=== PATIENT | female | born 1945 | race Caucasian/White ===

== ENCOUNTER 2020-02-04 22:01 | Inpatient (IN) | payer MEDICARE, OTHER ==
[~2020-02-04] VITALS: Ht 160 cm; Wt 71.7 kg
--- NOTE | 2020-02-04 22:05 | NUR ---
PT YUKI 89 FROM HOME FOR C/O GENERALIZED ABD PAIN +N/V AND CONSTIPATION X 3 DAYS. PT AAOX4, RESPIRATIONS EVEN AND UNLABORED ON RA W/ NAD NOTED. PT CONNECTED TO THE MONITOR AND POX.
[2020-02-04] MEDS ORDERED: MORPHINE SULFATE INJ 4 MG/ML DISP.SYRIN ONE (22:29)
[2020-02-04] MEDS ORDERED: ONDANSETRON HCL/PF 4 MG/2 ML VIAL ONE (22:29)
[2020-02-04] MEDS ORDERED: ONDANSETRON HCL/PF 4 MG/2 ML VIAL IVP ONE (22:30)
[2020-02-04] MEDS ORDERED: MORPHINE SULFATE INJ 2 MG/ML DISP.SYRIN IV ONE (22:30)
[2020-02-04 22:44] LABS: BASOPHILS % (AUTO) 0.3 % (0.0-2.0); HEMATOCRIT 30 % (33-45); HEMOGLOBIN 9.1 g/dL (11.5-14.8); LYMPHOCYTES # (AUTO) 1.4 /CMM (0.8-4.8); LYMPHOCYTES % (AUTO) 10.1 % (20.0-44.0); MEAN CORPUSCULAR HGB CONC 30 g/dl (31.0-36.0); MEAN CORPUSCULAR VOLUME 65 fL (82-100); MONOCYTES # (AUTO) 0.5 /CMM (0.1-1.30); MONOCYTES % (AUTO) 3.7 % (2.0-12.0); NEUTROPHILS # (AUTO) 11.6 /CMM (1.8-8.9); NEUTROPHILS % (AUTO) 85.9 % (43.0-81.0); PLATELET COUNT (AUTO) 408 /CMM (150-450); WHITE BLOOD COUNT (AUTO) 13.5 K/uL (4.3-11.0)
--- NOTE | 2020-02-04 22:47 | NUR ---
BLOOD COLLECTED AND SENT TO LAB
--- NOTE | 2020-02-04 22:47 | NUR ---
URINE COLLECTED AND SENT TO LAB
[2020-02-04 22:49] LABS: CALCIUM, SERUM 8.8 mg/dL (8.5-10.1); CARBON DIOXIDE 27 mmol/L (21-32); CHLORIDE 94 mmol/L (98-107); CREATININE 0.6 mg/dL (0.6-1.3); GLUCOSE 171 mg/dL (74-106); POTASSIUM 3.3 mmol/L (3.5-5.1); SODIUM SERUM 131 mmol/L (136-145); UREA NITROGEN, BLOOD 11 mg/dL (7-18)
--- NOTE | 2020-02-04 22:53 | NUR ---
PT TAKEN TO CT
[2020-02-04 22:54] LABS: ALANINE AMINOTRANSFERASE 24 U/L (12-78); ALBUMIN 3.8 g/dL (3.4-5.0); ALKALINE PHOSPHATASE 113 U/L (46-116); ASPARTATE AMINOTRANSFERASE 26 U/L (15-37); BILIRUBIN,DIRECT 0.1 mg/dL (0.0-0.2); BILIRUBIN,TOTAL 0.5 mg/dL (0.2-1.0); LIPASE 107 U/L (73-393); TOTAL PROTEIN, SERUM 8.1 g/dL (6.4-8.2)
[2020-02-04 22:59] LABS: APPEARANCE,URINE Slightly Cloudy (CLEAR); BILIRUBIN,URINE Negative (NEGATIVE); BLOOD, URINE Trace-intact Ery/uL (NEGATIVE); COLOR,URINE Yellow (YELLOW); KETONES,URINE 15 (NEGATIVE); LEUKOCYTE ESTERASE ,URINE Negative (NEGATIVE); NITRITE, URINE Negative (NEGATIVE); PROTEIN,URINE Trace mg/dl (NEGATIVE); UGLUCOSE 100 MG/DL mg/dL (NEGATIVE); UROBILINOGEN,URINE 0.2 EU/dL (0.2)
--- NOTE | 2020-02-04 23:05 | NUR ---
PT BACK FROM CT
[2020-02-04 23:19] LABS: BACTERIA,URINE Few /HPF (None Seen); SQUAMOUS EPITHELIAL CELL,UR Few /HPF (None Seen)
[2020-02-04 23:24] LABS: NEUTROPHILS % (MANUAL) 95 (42-76)
[2020-02-04 23:25] LABS: LYMPHOCYTES % (MANUAL) 4 % (16-48); MONOCYTES % (MANUAL) 1 % (0-11.0)
[2020-02-04] MEDS ORDERED: FERR325T30 PO (23:49)
[2020-02-04] MEDS ORDERED: ZOLP5TAB8 PO (23:50)
[2020-02-04] MEDS ORDERED: LISI-603 PO (23:51)
[2020-02-04] MEDS ORDERED: NEBI10TA2 PO (23:52)
[2020-02-04] MEDS ORDERED: AMLO5TAB9 PO (23:52)
[2020-02-04] MEDS ORDERED: DOCU-270 PO (23:53)
[2020-02-04] MEDS ORDERED: PROP20TA7 PO (23:54)
--- NOTE | 2020-02-05 00:10 | NUR ---
CALL BACK PER NURSE
--- NOTE | 2020-02-05 00:24 | NUR ---
NURSE WILL CALL BACK FOR ERPORT
--- NOTE | 2020-02-05 00:50 | NUR ---
REPORT GIVEN TO AUDREY NEIL
--- NOTE | 2020-02-05 00:54 | NUR ---
RE PAGED EPIC
[2020-02-05] MEDS ORDERED: hydrALAZINE HCL IV 20 MG VIAL ONE (00:59)
[2020-02-05] MEDS ORDERED: hydrALAZINE HCL IV 20 MG VIAL IV ONE ×2 (01:00→22:00)
[2020-02-05] MEDS: CIPROFLOXACIN IV RTU 400 MG in PREMIX 1 EA IV SCH ×2 (01:00→02:21)
[2020-02-05] MEDS ORDERED: FLAGYL/NS RTU 500 MG/100 ML PIGGYBACK IV ONE (01:00)
[2020-02-05] MEDS ORDERED: METRONIDAZOLE 500MG/ NS 100ML 100 ML IV ONE ×2 (01:05→05:02)
[2020-02-05] MEDS ORDERED: CIPROFLOXACIN IV RTU 200 ML IV ONE (01:05)
--- NOTE | 2020-02-05 01:32 | NUR ---
CIPROFLOXACIN 400 MG IV ENDORSED TO AUDREY NEIL
--- NOTE | 2020-02-05 02:22 | NUR ---
CIPROFLOXACIN 400 MG IV GIVEN IV LAC G 20 OVER 1 HOUR
[2020-02-05 02:40] VITALS: BP 170/96
[2020-02-05] MEDS ORDERED: MORPHINE SULFATE INJ 2 MG/ML DISP.SYRIN IV PRN (03:30)
[2020-02-05] MEDS ORDERED: ACETAMINOPHEN 325 MG TABLET PO PRN (03:30)
[2020-02-05] MEDS ORDERED: MAG HYDROX/AL HYDROX/SIMETH 30 ML UDC PO PRN (03:30)
[2020-02-05] MEDS ORDERED: Z GUARD REMEDY 2 OZ OINT TP PRN (03:30)
[2020-02-05] MEDS ORDERED: ZOLPIDEM TARTRATE 5 MG TABLET PO PRN (03:30)
[2020-02-05] MEDS ORDERED: MAGNESIUM HYDROXIDE 30 ML UDC PO PRN (03:30)
[2020-02-05 04:00] VITALS: BP 148/65
[2020-02-05] MEDS: METRONIDAZOLE 500MG/ NS 100ML 500 MG in PREMIX 1 EA IV SCH ×3 (05:06→21:18)
[2020-02-05] MEDS: IV NS 0.9% 1,000 ML IV PRN ×2 (05:09→23:51)
--- NOTE | 2020-02-05 06:55 | NUR ---
MS RN NOTES AWAKE & RESPONSIVE. NOT IN ANY DISTRESS. NO SOB NOTED. DENIES ANY PAIN OR DISCOMFORT AT THIS TIME. WITH IVF INFUSING WELL. MONITORED ACCORDINGLY. CALL LIGHT WITHIN REACH. BED IN LOWEST POSITION. SR UP X2 FOR SAFETY. WILL ENDORSE TO NEXT SHIFT.
[2020-02-05 08:00] VITALS: BP_SYST 148; BP_SYST 160; BP_DIAS 66; BP_DIAS 78
--- NOTE | 2020-02-05 08:00 | NUR ---
rn notes Received patient in the bed a/o x4 Citizen [place] speaker, no acute respiratory distress, was complaining of dizziness, and nausea, abdomen distended, unable passing gases. assist patient to the bathroom because of dizziness. NPO at this time. infusing NS at 75 ml/hr on left ac area intact. call light within to reach, continued monitoring.,
[2020-02-05] MEDS: ONDANSETRON HCL/PF 4 MG/2 ML VIAL IVP PRN ×2 (09:55→16:00)
--- NOTE | 2020-02-05 09:55 | NUR ---
RN NOTES ADMINISTERED ZOFRAN 4 MG/ML IV PUSH FOR NAUSEA.
--- NOTE | 2020-02-05 10:00 | NUR ---
rn notes seen [id number] by hospitalist TEMI Clinton, per hospitalist will follow up, plan is keep hydrating, keep npo, and nausea medication.
[2020-02-05 10:26] LABS: MAGNESIUM 2.2 mg/dL (1.8-2.4)
[2020-02-05 10:28] LABS: IRON, SERUM 18 ug/dl (50-175); TOTAL IRON BINDING CAPACITY 354 ug/dl (250-450)
[2020-02-05 10:39] LABS: THYROID STIMULATING HORMONE 0.944 uIU/mL (0.358-3.74)
[2020-02-05 16:00] VITALS: BP 175/96
[2020-02-05] MEDS: SIMETHICONE 80 MG TAB.CHEW PO PRN (16:00)
--- NOTE | 2020-02-05 16:00 | NUR ---
rn notes administered zofran 4 mg/ml iv push for nausea, and Mylicon 120 ml po prn for passing gas.
[2020-02-05] MEDS: DOCUSATE SODIUM 100 MG CAPSULE PO SCH (16:51)
--- NOTE | 2020-02-05 16:56 | NUR ---
rn notes Get gonsalo from GI Md Mosher get TO order NG tub insertion with low suction continues, NPO, fleet oil enema qid PRN, colonoscopy, sigmoidoscopy, and consent for tomorrow, order taken and carried out.
[2020-02-05] MEDS ORDERED: hydrALAZINE HCL 50 MG TABLET PO ONE (17:00)
[2020-02-05] MEDS ORDERED: MINERAL OIL 133 ML (PYXIS) 1 EA ENEMA RC PRN (17:00)
--- NOTE | 2020-02-05 17:00 | NUR ---
rn notes inserted NG tube on right nostril, chest x-ray ordered.
--- NOTE | 2020-02-05 17:45 | NUR ---
rn noted administered fleet oil enema at this time.
--- NOTE | 2020-02-05 18:30 | NUR ---
rn notes PATIENT IN THE BED KEEP HOB ELEVATED FOR ASPIRATION PRECAUTION, NGT INTACT CONNECTED WITH LOW INTERMITTENT SUCTIONING,V/S STABLE. PATIENT HAS NO BOWEL MOVEMENT AFTER FLEET ENEMA. CALL LIGHT WITHIN TO REACH. PATIENT NPO. ENDORSED ONCOMING NURSE FOLLOW PLAN OF CARE. PATIENT SIGN CONSENT FORM COLONOSCOPY, AND SIGMOIDOSCOPY.
--- NOTE | 2020-02-05 19:30 | NUR ---
MS RN NOTES PATIENT RECEIVED IN BED. ALERT AND ORIENTED X 4, ESTONIAN SPEAKING. HOB IN HIGH FOWLERS POSITION FOR ASPIRATION PRECAUTION. PATIENT NG TUBE IN PLACE WITH LOW INTERMITTENT SUCTION. SKIN WARM AND DRY TO TOUCH. IV ACCESS INTACT AND PATENT WITH NORMAL SALINE INFUSING AT 75ml/hr. DENIES PAIN AND DISCOMFORT AT THIS TIME. PROVIDED COMFORT MEASURES TO PATIENT. SAFETY PRECAUTIONS IN PLACE WITH BED LOCKED, BILATERAL SIDE RAILS UP, BED IN THE LOWEST POSITION, AND CALL LIGHT WITHIN EASY REACH OF THE PATIENT. WILL CONTINUE TO MONITOR PATIENT.
[2020-02-05 20:00] VITALS: BP 169/80
[2020-02-05] MEDS: CARVEDILOL 6.25 MG TABLET PO SCH (21:00)
--- NOTE | 2020-02-05 21:30 | NUR ---
MS RN NOTES PATIENT HAS SCHEDULE COREG 6.25mg PO, NOTIFIED KEESHA HERNANDEZ DNP AND INFORMED TO HOLD PO MEDICATIONS. KEESHA HERNANDEZ DNP ALSO ORDERED ATIVAN 0.5mg IV AND HYDRALAZINE 10mg IV. WILL CONTINUE TO MONITOR PATIENT.
--- NOTE | 2020-02-05 21:59 | NUR ---
MS RN NOTES PATIENT STILL ANXIOUS, ADMINISTERED IV ATIVAN 0.5mg KEESHA HERNANDEZ DNP ORDERED. VITAL SIGNS 179/85 HEART RATE 91. RESPIRATORY 20, AND SPO2 97%. WILL CONTINUE TO MONITOR PATIENT.
[2020-02-05] MEDS ORDERED: ZOLPIDEM TARTRATE 5 MG TABLET PO SCH (22:00)
[2020-02-05] MEDS ORDERED: LORAZEPAM INJ 2 MG/ML VIAL IV ONE (22:00)
--- NOTE | 2020-02-05 22:00 | NUR ---
MS RN NOTES ADMINISTERED IV HYDRALAZINE 10mg IV, PATIENT'S BLOOD PRESSURE 179/85 HEART RATE 91 SPO2 97% ON ROOM AIR. WILL REASSESS AND CONTINUE TO MONITOR PATIENT.
[2020-02-06] VITALS: BP 149/70
[2020-02-06 00:10] VITALS: BP 148/70
--- NOTE | 2020-02-06 01:15 | NUR ---
MS RN NOTES INSERT NEW NASOGASTRIC TUBE AND AUSCULTATED AIR INTO TUBE TO HEAR IF NASOGASTRIC TIP IS IN PLACE. ORDERED CHEST X-RAY FOR PLACEMENT, AWAITING FOR RESULTS. WILL CONTINUE TO MONITOR PATIENT.
[2020-02-06] MEDS: METRONIDAZOLE 500MG/ NS 100ML 500 MG in PREMIX 1 EA IV SCH ×3 (05:05→20:25)
[2020-02-06] MEDS: ONDANSETRON HCL/PF 4 MG/2 ML VIAL IVP PRN (05:29)
--- NOTE | 2020-02-06 05:29 | NUR ---
MS RN NOTES PATIENT COMPLAINING OF NAUSEA, ADMINISTERED PRN IV ZOFRAN 4mg, PROVIDED COMFORT MEASURES TO PATIENT. WILL CONTINUE TO MONITOR PATIENT.
--- NOTE | 2020-02-06 06:33 | NUR ---
MS RN NOTES PATIENT IN BED SLEEPING COMFORTABLY, EASILY AWAKEN BY NAME. NO SIGNS OF RESPIRATORY DISTRESS, WITH EVEN NON-LABORED BREATHING. NASOGASTRIC TUBE IN PLACE, SECURED WITH TAPE, AND SUCTIONING, with 200mL DRAINAGE PRESENT. IV ACCESS INTACT AND PATENT WITH NORMAL SALINE INFUSING AT 75ml/hr. PROVIDED COMFORT MEASURES TO PATIENT AND MET ALL OF PATIENT'S NEEDS. SAFETY PRECAUTIONS IN PLACE WITH BED LOCKED, BILATERAL SIDE RAILS UP, BED IN THE LOWEST POSITION, AND CALL LIGHT WITHIN EASY REACH OF THE PATIENT. WILL ENDORSE PLAN OF CARE TO UPCOMING DAYSHIFT NURSE.
[2020-02-06 06:47] LABS: BASOPHILS # (AUTO) 0.1 /CMM (0.0-0.2); BASOPHILS % (AUTO) 0.5 % (0.0-2.0); HEMATOCRIT 30 % (33-45); HEMOGLOBIN 9.1 g/dL (11.5-14.8); LYMPHOCYTES # (AUTO) 1.9 /CMM (0.8-4.8); LYMPHOCYTES % (AUTO) 15.4 % (20.0-44.0); MEAN CORPUSCULAR HGB CONC 30 g/dl (31.0-36.0); MEAN CORPUSCULAR VOLUME 66 fL (82-100); MONOCYTES # (AUTO) 0.9 /CMM (0.1-1.30); MONOCYTES % (AUTO) 7.5 % (2.0-12.0); NEUTROPHILS # (AUTO) 9.7 /CMM (1.8-8.9); NEUTROPHILS % (AUTO) 76.6 % (43.0-81.0); PLATELET COUNT (AUTO) 412 /CMM (150-450); RED BLOOD CELL COUNT(AUTO) 4.61 MIL/uL (4.0-5.2); WHITE BLOOD COUNT (AUTO) 12.6 K/uL (4.3-11.0)
[2020-02-06 07:12] LABS: ALANINE AMINOTRANSFERASE 20 U/L (12-78); ALBUMIN 3.3 g/dL (3.4-5.0); ALKALINE PHOSPHATASE 95 U/L (46-116); ASPARTATE AMINOTRANSFERASE 18 U/L (15-37); BILIRUBIN,TOTAL 0.5 mg/dL (0.2-1.0); CALCIUM, SERUM 8.5 mg/dL (8.5-10.1); CARBON DIOXIDE 23 mmol/L (21-32); CHLORIDE 99 mmol/L (98-107); CREATININE 0.7 mg/dL (0.6-1.3); GLUCOSE 135 mg/dL (74-106); MAGNESIUM 2.4 mg/dL (1.8-2.4); PHOSPHORUS 3.7 mg/dL (2.5-4.9); POTASSIUM 3.1 mmol/L (3.5-5.1); SODIUM SERUM 135 mmol/L (136-145); TOTAL PROTEIN, SERUM 7.3 g/dL (6.4-8.2); UREA NITROGEN, BLOOD 15 mg/dL (7-18)
[2020-02-06 07:15] LABS: CHOLESTEROL 220 mg/dL (<200); HDL CHOLESTEROL 53 mg/dL (40-60); LDL 159 mg/dL (0-99); THYROID STIMULATING HORMONE 1.533 uIU/mL (0.358-3.74); TRIGLYCERIDES 78 mg/dL (30-150)
--- NOTE | 2020-02-06 07:28 | NUR ---
MS RN NOTES RECEIVED PATIENT IN BED, AWAKE, A/O X4. PATIENT ON ROOM AIR; BREATHING IS EVEN AND UNLABORED, NO SOB PRESENT AT THIS TIME. NASOGASTRIC TUBE IN PLACE, SECURED WITH TAPE, AND SUCTIONING, 200 ML DRAINAGE PRESENT. LAC IV ACCESS G # 20 PRESENT AND INTACT; INFUSING NS AT 75 MLS/HR. SAFETY PRECAUTIONS IN PLACE; BED IN LOW POSITION AND LOCKED; RAILS UP X2, CALL LIGHT WITHIN REACH. WILL CONTINUE TO MONITOR PATIENT.
[2020-02-06 08:00] VITALS: BP 180/80
[2020-02-06] MEDS: LISINOPRIL (20MG) 20 MG TABLET PO SCH (09:26)
[2020-02-06] MEDS: AMLODIPINE BESYLATE 5 MG TABLET PO SCH (09:26)
[2020-02-06] MEDS: DOCUSATE SODIUM 100 MG CAPSULE PO SCH ×2 (09:26→16:54)
[2020-02-06] MEDS: CARVEDILOL 6.25 MG TABLET PO SCH ×2 (09:27→20:54)
--- NOTE | 2020-02-06 09:31 | NUR ---
MS RN NOTES NG TUBE SUCTION STOPPED FOR 30 MIN IN ORDER TO ADMINISTER MEDS.
[2020-02-06] MEDS: POTASSIUM CL. PREMIX PERIPHER. 50 ML IV SCH ×6 (09:48→22:35)
[2020-02-06 10:25] LABS: BAND % (MANUAL) 1 % (0.0-5.0); LYMPHOCYTES % (MANUAL) 17 % (16-48); MONOCYTES % (MANUAL) 6 % (0-11.0); NEUTROPHILS % (MANUAL) 76 (42-76)
--- NOTE | 2020-02-06 10:54 | NUR ---
MS RN NOTES PATIENT LEFT FOR PROCEDURE (TAKEN BY OR) AT 1050
--- NOTE | 2020-02-06 10:56 | NUR ---
MS RN NOTES TRIED TO REACH PATIENT'S SON BEFORE PROCEDURE (PER HIS REQUEST) NO ONE ANSWERED THE PHONE.
--- NOTE | 2020-02-06 12:37 | NUR ---
RN MS NOTES REPORT RECEIVED FROM FABIAN VENTURA FOR CONTINUITY OF CARE, PT STILL AT O.R. FOR COLONOSCOPY.
--- NOTE | 2020-02-06 12:37 | NUR ---
MS RN NOTES PATIENT CARE TRANSFERRED TO [facility]. REPORT GIVEN.
--- NOTE | 2020-02-06 12:47 | NUR ---
RN MS NOTES RECEIVED PT FROM O.R. STAFF FROM COLONOSCOPY, PT IS AWAKE, ALERT AND ORIENTED, DENIES PAIN, NOT IN DISTRESS, POST PROCEDURE ORDER RECEIVED, NOTED AND CARRIED OUT, NGT IN PLACE, PLACED ON LIS, KEPT PT COMFORTABLE, IV FLUIDS INFUSING WELL.
[2020-02-06 12:50] VITALS: BP 132/79
[2020-02-06] MEDS ORDERED: DEXTROSE 50%-WATER 50 ML DISP.SYRIN IV PRN (13:30)
[2020-02-06] MEDS ORDERED: SOD FERRIC GLUC 125 MG in IV NS 0.9% 100 ML IV SCH (14:00)
[2020-02-06] MEDS: Potassium Chloride 20 MEQ in IV D5/ 0.9% NACL 1,000 ML IV PRN (15:05)
[2020-02-06 16:00] VITALS: BP 140/87
[2020-02-06] MEDS: SOD FERRIC GLUC 125 MG in IV NS 0.9% 100 ML IV SCH (17:40)
[2020-02-06] MEDS: BLOOD SUGAR DIAGNOSTIC 1 EACH STRIP IN SCH (17:46)
--- NOTE | 2020-02-06 18:08 | NUR ---
RN MS NOTES PT IN BED, RESTING, AWAKE, ALERT AND ORIENTED, DENIES PAIN, NOT IN DISTRESS, CALL LIGHT WITHIN REACH, IV FLUIDS INFUSING WELL, KEPT NPO, NGT DRAINING WELL, PM CARE PROVIDED, KEPT WARM AND COMFORTABLE IN BED, ALL NEEDS ATTENDED.
--- NOTE | 2020-02-06 19:00 | NUR ---
RN NOTES: RECEIVED AWAKE IN BED IN HIGH FOWLERS POSITION, A/OX4, FARSI SPEAKING ONLY, ON RA SPO2-95%, IV CANNULA ON THE LAC G#20 WITH IVF OF D5%NS+20 mEq AT 80 ML/HR, FOR BLOOD SUGAR MONITORING, PER ENDORSEMENT FOR POTASSIUM REPLACEMENT, 3 BAGS PENDING TO BE GIVEN, ABLE TO AMBULATE WITH ASSIST, ORIENTED TO UNIT AND STAFF, KEPT CALL LIGHT WITHIN REACH, BED LOW AND LOCKED, SIDE RAILS UPX2, FALL,SAFETY AND ASPIRATION PRECAUTION OBSERVED, NPO EXCEPT MEDS, ICE CHIPS CAN BE GIVEN.KEPT ON CLOSE WATCH.
[2020-02-06 20:00] VITALS: BP 149/80
--- NOTE | 2020-02-06 21:02 | NUR ---
RN NOTES: AWAKE IN BETWEEN, COOPERATIVE CAN SPEAK LITTLE POLISH, COOPERATIVE, ORAL MEDS TAKEN AND TOLERATED, ASPIRATION PRECAUTION OBSERVED.
[2020-02-06] MEDS: ACETYLCYSTEINE 10% 3,000 MG/30 ML VIAL PO SCH (23:00)
--- NOTE | 2020-02-06 23:00 | NUR ---
RN NOTES: THIS MEDICATION IS NOT AVAILABLE IN THE OMNICELL, NOT ALSO AVAILABLE IN THE NURSING PROGRAM CHECKER, WILL ENDORSED TO F/U IN THE PHARMACY IN THE MORNING
--- NOTE | 2020-02-07 00:20 | NUR ---
RN NOTES: IV CANNULA OUT,EXPLAINED TO HER WE NEED TO REINSERT SHE AGREED. REINSERT IN RFA G#22 PATENT.RESUME IVF.
[2020-02-07] MEDS: BLOOD SUGAR DIAGNOSTIC 1 EACH STRIP IN SCH ×4 (00:37→17:02)
[2020-02-07] MEDS: INSULIN REGULAR, HUMAN 100 UNIT/ML 3 ML VIAL SQ PRN ×2 (00:47→05:39)
--- NOTE | 2020-02-07 00:49 | NUR ---
RN NOTES: BLOOD SUGAR CHECKED-145, INSULIN GIVEN PER SCALE, WILL CONTINUE TO MONITPOR FOR SIGN OF HYPER AND HYPOGLYCEMIA.
--- NOTE | 2020-02-07 03:31 | NUR ---
RN NOTES: PATIENT AWAKE AT SHORT INTERVALS, CALLS AND NEEDS ATTENDED, NO PAIN, NGT DRAINAGE 1,500, REPLACED WITH NEW CONTAINER.
[2020-02-07] MEDS: METRONIDAZOLE 500MG/ NS 100ML 500 MG in PREMIX 1 EA IV SCH ×3 (04:35→21:46)
--- NOTE | 2020-02-07 06:09 | NUR ---
RN NOTES: ABLE TO GET UP FROM BED, ACTIVITY TOLERATED, NO DIZZINESS NOTED, WENT TO THE BATHROOM, CLEAN AND CHANGE, MORNING CARE RENDERED. GIVEN ICE CHIPS. SHE REFUSED FOR BLOOD TEST, INSTRUCT CONTACT CENTER SPECIALIST TO COME BACK AGAIN LATER. -BLOOD SUGAR-133- INSULIN GIVEN PER SCALE.
--- NOTE | 2020-02-07 07:20 | NUR ---
RN NOTES: REMAINS STABLE, KEPT ON CLOSE WATCH, HER DRAINAGE CONTINUE TO FLOW,ENDORSED FOR CONTINUITY OF CARE AT THE LEVEL OF 500CC,BROWNISH/DARK COLORED DRAINAGE, FOR POSSIBLE CT CHEST ABDOMEN WITH CONTRAST TODAY, KEPT NPO, TAKING ICE CHIPS WITH GOOD TOLERANCE.FOR ONCO/SURGEON F/U.
[2020-02-07 08:00] VITALS: BP 164/92
[2020-02-07] MEDS: LISINOPRIL (20MG) 20 MG TABLET PO SCH (08:51)
[2020-02-07] MEDS: AMLODIPINE BESYLATE 5 MG TABLET PO SCH (08:52)
[2020-02-07] MEDS: CARVEDILOL 6.25 MG TABLET PO SCH ×2 (08:52→21:47)
[2020-02-07] MEDS: DOCUSATE SODIUM 100 MG CAPSULE PO SCH ×2 (08:52→17:01)
[2020-02-07] MEDS: ACETYLCYSTEINE 10% 3,000 MG/30 ML VIAL PO SCH ×2 (09:00→17:01)
[2020-02-07] MEDS ORDERED: CT SWABBABLE VALVE TRANS SET 1 EA INFUS.SET MC ONE (10:54)
[2020-02-07] MEDS ORDERED: IOHEXOL-300 100 ML VIAL IV ONE (10:54)
[2020-02-07] MEDS ORDERED: IV NS 0.9% 250 ML IV ONE (10:54)
--- NOTE | 2020-02-07 12:10 | NUR ---
Patient requested med record and sighed form
[2020-02-07] MEDS: SOD FERRIC GLUC 125 MG in IV NS 0.9% 100 ML IV SCH (15:13)
[2020-02-07 16:00] VITALS: BP 158/76
[2020-02-07 16:58] LABS: BASOPHILS # (AUTO) 0.1 /CMM (0.0-0.2); BASOPHILS % (AUTO) 0.6 % (0.0-2.0); EOSINOPHILS % (AUTO) 0.9 % (0.0-6.0); HEMATOCRIT 31 % (33-45); HEMOGLOBIN 9.3 g/dL (11.5-14.8); LYMPHOCYTES # (AUTO) 2.9 /CMM (0.8-4.8); LYMPHOCYTES % (AUTO) 20.3 % (20.0-44.0); MEAN CORPUSCULAR HGB CONC 30 g/dl (31.0-36.0); MEAN CORPUSCULAR VOLUME 66 fL (82-100); MONOCYTES # (AUTO) 1.5 /CMM (0.1-1.30); MONOCYTES % (AUTO) 10.7 % (2.0-12.0); NEUTROPHILS # (AUTO) 9.5 /CMM (1.8-8.9); NEUTROPHILS % (AUTO) 67.5 % (43.0-81.0); PLATELET COUNT (AUTO) 444 /CMM (150-450); RED BLOOD CELL COUNT(AUTO) 4.72 MIL/uL (4.0-5.2)
[2020-02-07] MEDS: Potassium Chloride 20 MEQ in IV D5/ 0.9% NACL 1,000 ML IV PRN (17:04)
[2020-02-07 17:11] LABS: CALCIUM, SERUM 8.3 mg/dL (8.5-10.1); CREATININE 0.8 mg/dL (0.6-1.3); MAGNESIUM 2.7 mg/dL (1.8-2.4); PHOSPHORUS 3.3 mg/dL (2.5-4.9)
[2020-02-07 17:17] LABS: POTASSIUM 3.1 mmol/L (3.5-5.1)
[2020-02-07 17:24] LABS: LYMPHOCYTES % (MANUAL) 24 % (16-48); MONOCYTES % (MANUAL) 9 % (0-11.0); NEUTROPHILS % (MANUAL) 67 (42-76)
--- NOTE | 2020-02-07 18:56 | NUR ---
Patient awake alert and oriented x3, NG tube interm. suctioning in place with brown output.Patien remains NPO, can have ice ships. All needs attended. Patient able to use bathroom with assistants.IV fluid running as ordered. VS are stable and within baseline, on room air. PAtient denied pain and abdomen soft and not distended. Patient's family will make a discission about surgery. Dr Murrell will call tomorrow morning to pt's son again. Safety precautions in place , will endorse to next shift for KIMBERLY
--- NOTE | 2020-02-07 19:53 | NUR ---
RN NOTES RECEIVED AWAKE IN BED IN HIGH FOWLERS POSITION, A/OX4, FARSI SPEAKING ONLY, ON RA SPO2>94, IV ACCESS ON THE LAC G#20 WITH IVF INTACT AND PATENT. ABLE TO AMBULATE WITH ASSIST, ORIENTED TO UNIT AND STAFF, CALL LIGHT WITHIN EASY REACH, BED LOW AND LOCKED, SIDE RAILS UPX2, FALL,SAFETY AND ASPIRATION PRECAUTION OBSERVED, NPO EXCEPT MEDS, ICE CHIPS CAN BE GIVEN. KEPT ON CLOSE WATCH. ALL NEEDS ANTICIPATED. WILL CONTINUE TO MONITOR ACCORDINGLY.
[2020-02-07 20:00] VITALS: BP 138/78
[2020-02-07 20:45] VITALS: BP 138/78
[2020-02-08] VITALS: BP 154/90
[2020-02-08] MEDS: BLOOD SUGAR DIAGNOSTIC 1 EACH STRIP IN SCH ×4 (00:08→16:46)
[2020-02-08 00:13] VITALS: BP 154/90
[2020-02-08 04:56] VITALS: BP 138/78
[2020-02-08] MEDS: METRONIDAZOLE 500MG/ NS 100ML 500 MG in PREMIX 1 EA IV SCH ×3 (05:06→20:28)
[2020-02-08 07:13] LABS: BASOPHILS # (AUTO) 0.1 /CMM (0.0-0.2); BASOPHILS % (AUTO) 0.6 % (0.0-2.0); HEMATOCRIT 29 % (33-45); LYMPHOCYTES # (AUTO) 2.2 /CMM (0.8-4.8); LYMPHOCYTES % (AUTO) 19.5 % (20.0-44.0); MEAN CORPUSCULAR HGB CONC 31 g/dl (31.0-36.0); MEAN CORPUSCULAR VOLUME 66 fL (82-100); MONOCYTES # (AUTO) 1.2 /CMM (0.1-1.30); NEUTROPHILS # (AUTO) 7.7 /CMM (1.8-8.9); NEUTROPHILS % (AUTO) 67.9 % (43.0-81.0); PLATELET COUNT (AUTO) 447 /CMM (150-450); RED BLOOD CELL COUNT(AUTO) 4.42 MIL/uL (4.0-5.2); WHITE BLOOD COUNT (AUTO) 11.4 K/uL (4.3-11.0)
--- NOTE | 2020-02-08 07:30 | NUR ---
RN NOTES ALL NEEDS ATTENDED AND MET, SAFETY MEASURES IN PLACE, ASPIRATION PRECAUTION EMPHASIZED, CALL LIGHT WITHIN EASY REACH. ENDORSED TO AM NURSE FOR CONTINUITY OF CARE.
[2020-02-08 07:36] LABS: CALCIUM, SERUM 8.5 mg/dL (8.5-10.1); CREATININE 0.7 mg/dL (0.6-1.3); MAGNESIUM 2.6 mg/dL (1.8-2.4); PHOSPHORUS 3.5 mg/dL (2.5-4.9); POTASSIUM 2.9 mmol/L (3.5-5.1)
--- NOTE | 2020-02-08 07:55 | NUR ---
Call from dr. Goode ; no surgery until biopsy results back
[2020-02-08 08:00] VITALS: BP 134/98
--- NOTE | 2020-02-08 08:12 | NUR ---
IV line infiltrated, removed . A new IV line inserted to the right forearm G #20 , IV fluid to continue as ordered
--- NOTE | 2020-02-08 08:14 | NUR ---
critical carbon dioxide is 40 , K is 2.[address] Clinton informed
[2020-02-08] MEDS: DOCUSATE SODIUM 100 MG CAPSULE PO SCH ×2 (08:37→16:46)
[2020-02-08] MEDS: LISINOPRIL (20MG) 20 MG TABLET PO SCH (08:38)
[2020-02-08] MEDS: AMLODIPINE BESYLATE 5 MG TABLET PO SCH (08:38)
[2020-02-08] MEDS: CARVEDILOL 6.25 MG TABLET PO SCH ×2 (08:39→20:29)
[2020-02-08] MEDS: POTASSIUM CL. PREMIX PERIPHER. 50 ML IV SCH ×8 (08:55→17:55)
--- NOTE | 2020-02-08 10:09 | NUR ---
Per start patient on clear liquid
--- NOTE | 2020-02-08 12:10 | NUR ---
Patient tolerated clear liquid diet well with no N/V or abdominal pain
[2020-02-08] MEDS: SOD FERRIC GLUC 125 MG in IV NS 0.9% 100 ML IV SCH (13:56)
[2020-02-08 16:00] VITALS: BP 176/76
[2020-02-08] MEDS: Potassium Chloride 20 MEQ in IV D5/ 0.9% NACL 1,000 ML IV PRN ×2 (17:39→17:41)
--- NOTE | 2020-02-08 18:33 | NUR ---
Patient resting in bed, alert and oriented x3 , Guinean speaking. Breathing unlabored and even on room air with saturation above 95%. VS within baseline, afebrile. NG - tube connected to suction (Intermittent low). Total output 2600 ml. IV lines intact and patent. IV fluid running as ordered, 400 ml K as ordered infused . Patient tolerated clear diet. Patient able to walk with assistance.All needs attended. Will endorse jimbo next shift for KIMBERLY
--- NOTE | 2020-02-08 19:30 | NUR ---
MS RN OPENING NOTE RECEIVED PATIENT IN BED. A/OX4, EQUATORIAL GUINEAN SPEAKING ABLE TO MAKE BASIC NEEDS KNOWN. TOLERATING ROOM AIR. RESPIRATIONS ARE EVEN AND UNLABORED. RIGHT NARE HAS NG TUBE CONNECTED TO LOW INTERMITTENT SUCTION, OUTPUT IS THIN AND BLACK. NO S/S PAIN AT THIS TIME. IN NO APPARENT DISTRESS. IV ACCESS IN RFA#20 PATENT AND SALINE LOCKED AND L WRIST #22 RUNNING KCL 20MEQ WITH D5NS@80ML/HR. BED IS LOW AND LOCKED, HOB ELEVATED IN HIGH FOWLERS, SIDE RIALS UP X2, CALL LIGHT WITHIN REACH. WILL CONTINUE TO MONITOR.
[2020-02-08 20:00] VITALS: BP 163/90
--- NOTE | 2020-02-08 21:25 | NUR ---
ms rn note reassessed o2 saturation with a different vital signs machine o2 sat 92% on room air. patient refused 2l/min via nasal cannula. will continue to monitor.
[2020-02-09] MEDS: BLOOD SUGAR DIAGNOSTIC 1 EACH STRIP IN SCH ×4 (00:40→17:23)
--- NOTE | 2020-02-09 00:42 | NUR ---
ms rn note 0000 accu check bs 184. will not provide insulin coverage d/t patient is on ng tube to low intermittent suction. all patient ice chips currently taking are being suctioned. explained situation to charge nurse, agrees not to give insulin. will continue to monitor.
[2020-02-09] MEDS: METRONIDAZOLE 500MG/ NS 100ML 500 MG in PREMIX 1 EA IV SCH ×3 (05:06→21:27)
--- NOTE | 2020-02-09 05:21 | NUR ---
ms rn note administered prn Tylenol 650mg per patient request for abdominal pain. will continue to monitor.
--- NOTE | 2020-02-09 05:49 | NUR ---
ms rn note 0600 accu check blood sugar 185. did not administer insulin d/t patient has ng tube to low intermittent suction. all fluids are being removed. will endorse to next shift and will continue to monitor.
--- NOTE | 2020-02-09 07:06 | NUR ---
MS RN CLOSING NOTE PATIENT IN BED. A/OX4. TOLERATING ROOM AIR. RESPIRATIONS ARE EVEN AND UNLABORED. RIGHT NARE HAS NG TUBE CONNECTED TO LOW INTERMITTENT SUCTION, OUTPUT IS THIN AND BLACK, OUTPUT 3000. ADMINISTERED TYLENOL FOR PAIN PER PATIENT REQUEST. NO DISTRESS. IV ACCESS MAINTAINED IN RFA#20 PATENT AND SALINE LOCKED AND L WRIST #22 RUNNING KCL 20MEQ WITH D5NS@80ML/HR. BED IS LOW AND LOCKED, HOB ELEVATED IN HIGH FOWLERS, SIDE RIALS UP X2, CALL LIGHT WITHIN REACH. WILL ENDORSE TO NEXT SHIFT.
--- NOTE | 2020-02-09 07:37 | NUR ---
MS/RN OPENING NOTES RECEIVED PATIENT IN BED. A/OX4. TOLERATING ROOM AIR. RESPIRATIONS ARE EVEN AND UNLABORED. RIGHT NARE HAS NG TUBE CONNECTED TO LOW INTERMITTENT SUCTION, OUTPUT IS THIN AND BLACK. NO DISTRESS RESPIRATORY DISTRESS NOTED. IV ACCESS MAINTAINED IN RFA#20 PATENT AND SALINE LOCKED AND L WRIST #22 RUNNING KCL 20MEQ WITH D5NS@80ML/HR. BED IS LOW AND LOCKED, HOB ELEVATED IN HIGH FOWLERS, SIDE RIALS UP X2, CALL LIGHT WITHIN REACH. WILL CONTINUE TO MONITOR.
[2020-02-09 08:00] VITALS: BP 165/81
[2020-02-09] MEDS: LISINOPRIL (20MG) 20 MG TABLET PO SCH (08:48)
[2020-02-09] MEDS: DOCUSATE SODIUM 100 MG CAPSULE PO SCH ×2 (08:48→17:17)
[2020-02-09] MEDS: AMLODIPINE BESYLATE 5 MG TABLET PO SCH (08:49)
[2020-02-09] MEDS: CARVEDILOL 6.25 MG TABLET PO SCH ×2 (08:49→21:28)
[2020-02-09] MEDS: INSULIN REGULAR, HUMAN 100 UNIT/ML 3 ML VIAL SQ PRN ×2 (11:22→17:26)
--- NOTE | 2020-02-09 11:28 | NUR ---
MS/RN NOTES BS 205 MG/DL 4 UNITS INSULIN WAS GIVEN.
[2020-02-09 12:06] LABS: *HGBFRC HEMOGLOBIN A2 1.5 % (1.8-3.2)
[2020-02-09] MEDS: SOD FERRIC GLUC 125 MG in IV NS 0.9% 100 ML IV SCH (14:36)
[2020-02-09 16:00] VITALS: BP 145/85
[2020-02-09 16:32] LABS: BASOPHILS # (AUTO) 0.2 /CMM (0.0-0.2); EOSINOPHILS % (AUTO) 0.3 % (0.0-6.0); HEMATOCRIT 33 % (33-45); HEMOGLOBIN 10.1 g/dL (11.5-14.8); LYMPHOCYTES # (AUTO) 2.7 /CMM (0.8-4.8); LYMPHOCYTES % (AUTO) 14.8 % (20.0-44.0); MEAN CORPUSCULAR HGB CONC 31 g/dl (31.0-36.0); MEAN CORPUSCULAR VOLUME 67 fL (82-100); MONOCYTES # (AUTO) 1.5 /CMM (0.1-1.30); MONOCYTES % (AUTO) 8.2 % (2.0-12.0); NEUTROPHILS # (AUTO) 13.6 /CMM (1.8-8.9); NEUTROPHILS % (AUTO) 75.7 % (43.0-81.0); PLATELET COUNT (AUTO) 482 /CMM (150-450); RED BLOOD CELL COUNT(AUTO) 4.88 MIL/uL (4.0-5.2)
[2020-02-09 16:45] LABS: CALCIUM, SERUM 8.9 mg/dL (8.5-10.1); CREATININE 0.9 mg/dL (0.6-1.3); MAGNESIUM 2.7 mg/dL (1.8-2.4); PHOSPHORUS 5.1 mg/dL (2.5-4.9)
[2020-02-09 17:55] LABS: LYMPHOCYTES % (MANUAL) 16 % (16-48); MONOCYTES % (MANUAL) 6 % (0-11.0); NEUTROPHILS % (MANUAL) 78 (42-76)
[2020-02-09 18:06] LABS: POTASSIUM 2.4 mmol/L (3.5-5.1)
--- NOTE | 2020-02-09 19:26 | NUR ---
MS/RN CLOSING NOTES PATIENT IS ON BED. A/OX4. TOLERATING ROOM AIR. RESPIRATIONS ARE EVEN AND UNLABORED. RIGHT NARE HAS NG TUBE CONNECTED TO LOW INTERMITTENT SUCTION, OUTPUT IS THIN AND BLACK. NO S/S OF RESPIRATORY DISTRESS NOTED. NO COMPLAINED OF PAIN AT THIS TIME. IV ACCESS MAINTAINED IN RFA#20 PATENT AND SALINE LOCKED AND L WRIST #22 RUNNING KCL 20MEQ WITH D5NS@80ML/HR. SEEN AND EXAMINED BY MD WITH ORDERS MADE AND CARRIED OUT. ALL DUE MEDICATION WAS GIVEN. CRITICAL LAB VALUE OF POTASSIUM 2.4 CO2 44 DOCTOR STEPHENSON ORDER POTASSIUM 40 MEQ IV AND ABG NOTED AND CARRIED OUT. PATIENT IS FOR SURGERY TOMORROW TELEPHONE CONSENT BY DALE ARBOLEDA (SON) AND ATTACH TO CHART. ALEM VENTURA DISTRIBUTION ANALYST IS AWARE. BED IS LOW AND LOCKED, HOB ELEVATED IN HIGH FOWLERS, SIDE RAILS UP X2, CALL LIGHT WITHIN REACH. WILL ENDORSED TO DISTRIBUTION ANALYST FOR KIMBERLY.
--- NOTE | 2020-02-09 19:30 | NUR ---
MS RN CLOSING NOTE PATIENT IN BED. A/OX4. TOLERATING ROOM AIR. RESPIRATIONS ARE EVEN AND UNLABORED. RIGHT NARE WITH NG TUBE CONNECTED TO LOW INTERMITTENT SUCTION, OUTPUT IS THIN AND BLACK. NO S/S PAIN AT THIS TIME. IN NO APPARENT DISTRESS. IV ACCESS IN RFA#20 PATENT AND SALINE LOCKED AND L WRIST #22 RUNNING KCL 20MEQ WITH D5NS@80ML/HR. BED IS LOW AND LOCKED, HOB ELEVATED IN HIGH FOWLERS, SIDE RIALS UP X2, CALL LIGHT WITHIN REACH. WILL CONTINUE TO MONITOR.
[2020-02-09] MEDS: Potassium Chloride 20 MEQ in IV D5/ 0.9% NACL 1,000 ML IV PRN (19:53)
[2020-02-09 20:00] VITALS: BP 159/76
[2020-02-09 20:45] LABS: ABG BASE EXCESS 22.2 mmol/L; ABG PCO2 42.7 mmHg (35.0-45.0); ABG PH 7.644 (7.350-7.450); ABG PO2 53.3 mmHg (75.0-100.0); AaDO2 45.3 mmHg; COHb 0.6 % (0.5-1.5); O2Hb 89.5 % (94.0-97.0); SITE, ABG Right Radial; VENT MODE, BG ROOM AIR
--- NOTE | 2020-02-09 21:10 | NUR ---
MS RN NOTE 2107. RT CALLED TO NOTIFY OF CRITICAL IN ABG. PH [phone], PO2 53.3. RECOMMENDATION TO PLACE PATIENT ON 2L/MIN VIA NASAL CANNULA. 2109 CALLED MD TO NOTIFY HIM OF THE CRITICAL LAB ABGS. PH [phone], PO2 53.3, PCO2 42.7, HCO3 45.[address] PATIENT ON SUPPLEMENTAL O2 AND TITRATE NEEDED. ORDER READ BACK NOTED AND CARRIED OUT. PATIENT CURRENT O2 SAT 90% PLACED PATIENT ON 2L/MIN VIA NASAL CANNULA O2 SAT NOW 92%. INCREASE TO 3L/MIN O2 SAT NOW FLUCTUATING BETWEEN 92% AND 93%. PLACED PATIENT ON 4L.MIN O2 SAY 93% WILL CONTINUE TO MONITOR PATIENT.
[2020-02-09] MEDS: POTASSIUM CHLORIDE 10 MEQ/50 ML PREMIXED IVPB FOR PERIPHERAL LINE IV SCH ×4 (21:27→23:00)
[2020-02-10] VITALS (44 sets, daily range): BP systolic 45–169; BP diastolic 20–93
--- NOTE | 2020-02-10 | NUR ---
ms rn note patient is npo. placed sign on patients door and table. cleared bedside table from all food and drink. informed patient of npo status. will continue to monitor.
--- NOTE | 2020-02-10 00:10 | NUR ---
ms rn note 0000 accucheck read bs 164. no insulin coverage d/t patient is npo for surgery,. will continue to monitor.
[2020-02-10] MEDS: POTASSIUM CHLORIDE 10 MEQ/50 ML PREMIXED IVPB FOR PERIPHERAL LINE IV SCH ×8 (01:00→07:00)
--- NOTE | 2020-02-10 01:49 | NUR ---
ms rn - note for pharmacy only administered 40meq potassium in 50ml bags (4 bags total). there were more potassium chloride bags shown on emar. did not administer more than 4 bags.
[2020-02-10] MEDS: METRONIDAZOLE 500MG/ NS 100ML 500 MG in PREMIX 1 EA IV SCH ×3 (05:01→22:01)
[2020-02-10] MEDS: BLOOD SUGAR DIAGNOSTIC 1 EACH STRIP IN SCH ×4 (05:02→18:10)
--- NOTE | 2020-02-10 05:11 | NUR ---
ms rn note 0600 accuc heck bs reads 155. did not provide insulin coverage d/t timur dinero. will continue to monitor.
[2020-02-10] MEDS ORDERED: ANESTHESIA TRAY IN PYXIS 1 EA TRAY MC ONE (06:58)
--- NOTE | 2020-02-10 07:06 | NUR ---
ms rn note patient is being taken to surgery.
--- NOTE | 2020-02-10 07:15 | NUR ---
rn notes patient taken to the surgery at this time.
[2020-02-10 07:33] LABS: BASOPHILS # (AUTO) 0.1 /CMM (0.0-0.2); BASOPHILS % (AUTO) 0.3 % (0.0-2.0); HEMATOCRIT 35 % (33-45); HEMOGLOBIN 10.5 g/dL (11.5-14.8); LYMPHOCYTES # (AUTO) 1.3 /CMM (0.8-4.8); LYMPHOCYTES % (AUTO) 5.4 % (20.0-44.0); MEAN CORPUSCULAR HGB CONC 30 g/dl (31.0-36.0); MEAN CORPUSCULAR VOLUME 68 fL (82-100); MONOCYTES # (AUTO) 1.5 /CMM (0.1-1.30); MONOCYTES % (AUTO) 6.3 % (2.0-12.0); NEUTROPHILS # (AUTO) 21.3 /CMM (1.8-8.9); PLATELET COUNT (AUTO) 491 /CMM (150-450); RED BLOOD CELL COUNT(AUTO) 5.15 MIL/uL (4.0-5.2); WHITE BLOOD COUNT (AUTO) 24.2 K/uL (4.3-11.0)
[2020-02-10 07:44] LABS: ALANINE AMINOTRANSFERASE 27 U/L (12-78); ALBUMIN 3.5 g/dL (3.4-5.0); ALKALINE PHOSPHATASE 85 U/L (46-116); ASPARTATE AMINOTRANSFERASE 44 U/L (15-37); BILIRUBIN,TOTAL 0.7 mg/dL (0.2-1.0); CALCIUM, SERUM 8.8 mg/dL (8.5-10.1); CHLORIDE 96 mmol/L (98-107); GLUCOSE 161 mg/dL (74-106); MAGNESIUM 2.9 mg/dL (1.8-2.4); PHOSPHORUS 6.2 mg/dL (2.5-4.9); SODIUM SERUM 153 mmol/L (136-145); TOTAL PROTEIN, SERUM 7.3 g/dL (6.4-8.2); UREA NITROGEN, BLOOD 33 mg/dL (7-18)
[2020-02-10 07:46] LABS: POTASSIUM 2.5 mmol/L (3.5-5.1)
--- NOTE | 2020-02-10 08:00 | NUR ---
rn notes patient back from surgery, because of critical lab result kcl 2.4, per surgeon will replace 80mEq, rescheduled surgery afternoon after kcl + replacement.
[2020-02-10 08:02] LABS: CARBON DIOXIDE 61 mmol/L (21-32)
--- NOTE | 2020-02-10 08:23 | NUR ---
rn notes get pic line order, and KCL 80 mEq at this time via hospitalist Pablo MEMBRENO, connected NG tube to the intermittent suctioning, held po scheduled medication, keep hob elevated for aspiration precaution, v/s taken bp 123/71, p-101, ,t-97.8, on o2-3L NC, patient independent in bed moving, refused pain at this time, infusing,D51/2 NS at 80 ml/hr on right FA intact. patient on diaper. call light within to reach, continued monitoring.
[2020-02-10] MEDS: POTASSIUM CL. PREMIX PERIPHER. 50 ML IV SCH ×10 (08:47→23:05)
[2020-02-10] MEDS: AMLODIPINE BESYLATE 5 MG TABLET PO SCH (09:00)
[2020-02-10] MEDS: DOCUSATE SODIUM 100 MG CAPSULE PO SCH ×2 (09:00→17:00)
[2020-02-10] MEDS ORDERED: KCL IV SCH ×2 (09:00)
[2020-02-10] MEDS ORDERED: [UNRECOGNIZED DRUG - OTHER] IV SCH ×2 (09:00)
[2020-02-10] MEDS: NITROGLYCERIN 30 GM TUBE TP SCH ×2 (09:00→21:00)
[2020-02-10] MEDS ORDERED: D5 IV SCH ×2 (09:00)
[2020-02-10] MEDS: CARVEDILOL 6.25 MG TABLET PO SCH ×2 (09:00→21:00)
[2020-02-10 09:01] LABS: ABG BASE EXCESS 35.5 mmol/L; ABG OXYGEN SATURATION 96.9 % (92.0-98.5); ABG PCO2 50.7 mmHg (35.0-45.0); ABG PH 7.691 (7.350-7.450); ABG PO2 83.4 mmHg (75.0-100.0); AaDO2 85.4 mmHg; COHb 0.8 % (0.5-1.5); MetHb 0.3 % (0.0-1.5); O2Hb 95.8 % (94.0-97.0); SITE, ABG Left Radial
--- NOTE | 2020-02-10 09:09 | NUR ---
RT NOTE CRITICAL ABG RESULTS RELAYED TO MD REYES. Addendum: 02/10/20 at 0923 by MARCI KHAN RT RESULTS ALSO RELAYED TO AUDREY CHRISTENSEN.
[2020-02-10] MEDS ORDERED: Potassium Chloride 40 MEQ in IV D5/0.45 NACL 1,000 ML IV PRN (09:30)
[2020-02-10] MEDS ORDERED: acetaZOLAMIDE SODIUM 500 MG/VIAL VIAL IV ONE (10:00)
--- NOTE | 2020-02-10 10:12 | NUR ---
rn notes patient transferred ICU because of ABG result. report given Patricia RN follow plan of care.
--- NOTE | 2020-02-10 10:30 | NUR ---
ICU/RN: RECEIVED BEDSIDE REPORT FROM 3W RN ZOE. PT TRANSFERRED TO 260FROM 310. ON ON NASAL CANULA, NO ACUTE DISTRESS NOTED. SINUS TACH ON TELE. PT SCHEDULED FOR SURGERY, RECEIVING POTASSIUM, WILL RECHECK LEVEL AT 1300 TO DETERMINE IF PT CAN HAVE SURGERY TODAY. NG TUBE IN PLACE, TO LIS, BLACK OUTPUT NOTED. VSS. PT ALERT, AWAKE, FOLLOWS COMMANDS. ALL NEEDS WILL BE ATTENDED TO, SAFETY MEASURES TAKEN, BED IN LOW POSITION, SIDE RAILS UP, CALL LIGHT WITHIN REACH. WILL CONTINUE CARE. YASMINE AT BEDSIDE FOR PICC LINE PLACEMENT.
[2020-02-10] MEDS ORDERED: Potassium Chloride 60 MEQ in IV D5W 1,000 ML IV PRN (11:23)
[2020-02-10] MEDS: INSULIN REGULAR, HUMAN 100 UNIT/ML 3 ML VIAL SQ PRN ×2 (12:00→18:24)
[2020-02-10 12:13] LABS: LYMPHOCYTES % (MANUAL) 2 % (16-48); MONOCYTES % (MANUAL) 5 % (0-11.0); NEUTROPHILS % (MANUAL) 93 (42-76)
[2020-02-10] MEDS ORDERED: Potassium Chloride 40 MEQ in IV D5W 1,000 ML IV PRN (12:30)
[2020-02-10 13:33] LABS: BILIRUBIN,DIRECT 0.1 mg/dL (0.0-0.2)
[2020-02-10] MEDS ORDERED: ROCURONIUM BROMIDE 50 MG/5 ML ONE (13:44)
[2020-02-10] MEDS ORDERED: MIDAZOLAM HCL 2 MG/2ML VIAL ONE (13:44)
[2020-02-10] MEDS: SOD FERRIC GLUC 125 MG in IV NS 0.9% 100 ML IV SCH (14:00)
--- NOTE | 2020-02-10 14:03 | NUR ---
ICU/RN: OR STAFF AT BEDSIDE. PT CLEARED FOR PROCEDURE BY , AND ANESTHESIOLOGIST BASED ON RECENT LABS. SON OF PT UPDATED ON PT CONDITION.
[2020-02-10] MEDS ORDERED: LEVOFLOXACIN 500 MG /D5W 100ML 100 ML IV ONE (14:57)
--- NOTE | 2020-02-10 15:32 | NUR ---
ICU/RN: PT BACK FROM OR. PARTIAL COLECTOMY WITH TEMPORARY COLOSTOMY IN PLACE. MEDIAL ABDOMINAL DRESSING CLEAN AND DRY. COLOSTOMY BAG IN PLACE, NO OUTPUT NOTED YET. NO S/S OF BLEEDING NOTED. PT PLACED ON BILATERAL SOFT WRIST RESTRAINTS, DIPRIVAN STARTED. LEVO ON STANDBY FOR LOW BP, ORDERS PLACED IN [facility]
[2020-02-10] MEDS ORDERED: NOREPINEPHRINE 8 MG in IV NS 0.9% 242 ML IV PRN (16:00)
[2020-02-10] MEDS: PROPOFOL 100 ML IV PRN ×2 (16:22→21:21)
--- NOTE | 2020-02-10 16:34 | NUR ---
PT PLACED ON MECHANICAL VENTILATION POST SURGERY ON SETTINGS GIVEN BY . AIRWAY IS PATENT AND SECURE WITH NO SIGNS OF RESPIRATORY DISTRESS. VENT IS PLUGGED INTO RED OUTLET WITH ALARMS ON AND AUDIBLE. Addendum: 02/10/20 at 1636 by CHELLY LUBIN RT Amended: Links added.
[2020-02-10] MEDS ORDERED: MORPHINE SULFATE INJ 2 MG/ML DISP.SYRIN IV PRN (17:30)
[2020-02-10] MEDS: [UNRECOGNIZED DRUG - OTHER] IV PRN ×2 (18:10)
[2020-02-10] MEDS: METOCLOPRAMIDE HCL 10 MG/2 ML VIAL IV SCH (18:10)
[2020-02-10] MEDS: D5 IV PRN ×2 (18:10)
[2020-02-10] MEDS: KCL IV PRN ×2 (18:10)
--- NOTE | 2020-02-10 18:20 | NUR ---
ICU/RN: RECEIVED CALL FROM [facility] REGARDING TUBE PLACEMENT. PER RADIOLOGIST TUBE NEEDS TO BE PULLED BACK 3.5 CM. CALLED AND NOTIFIED, ORDERS RECEIVED, ENDORSED TO RT. WILL FOLLOW UP.
[2020-02-10] MEDS: NOREPINEPHRINE 8 MG in IV NS 0.9% 242 ML IV PRN (18:30)
[2020-02-10 18:45] LABS: BILIRUBIN,URINE SMALL (NEGATIVE); BLOOD, URINE SMALL Ery/uL (NEGATIVE); COLOR,URINE DARK YELLO (YELLOW); KETONES,URINE TRACE (NEGATIVE); LEUKOCYTE ESTERASE ,URINE NEGATIVE (NEGATIVE); NITRITE, URINE POSITIVE (NEGATIVE); PROTEIN,URINE 100 mg/dl (NEGATIVE); UGLUCOSE NEGATIVE (NEGATIVE); UROBILINOGEN,URINE 0.2 EU/dL (0.2)
[2020-02-10 18:47] LABS: PH,URINE >9.0 (5.0-8.0)
[2020-02-10 18:53] LABS: CREATININE, URINE 74.5 MG/DL (30.0-125.0); URINE TOTAL PROTEIN 119.1 mg/dL (0-11.9)
[2020-02-10 19:00] LABS: APPEARANCE,URINE HAZY (CLEAR)
[2020-02-10] MEDS ORDERED: MEROPENEM 500 MG in IV NS 0.9% 50 ML IV ONE (19:00)
[2020-02-10 19:01] LABS: BACTERIA,URINE Few /HPF (None Seen); SQUAMOUS EPITHELIAL CELL,UR Moderate /HPF (None Seen); URINE AMORPHOUS PHOSPHATES Moderate /HPF (None Seen)
--- NOTE | 2020-02-10 19:36 | NUR ---
RECEIVED PT INTUBATED ETT 7.5 23CM AT THE LIP, CHEST XRAY WILL BE ORDERED. ON VENT SETTINGS ORDERED BY . TOLERATING WELL Addendum: 02/10/20 at 1940 by NINA BECK RN WHEN PT CAME FROM OR AT 1532
--- NOTE | 2020-02-10 19:40 | NUR ---
ICU/RN ENDING NOTES,AM REPORT ENDORSED TO NIGHT NURSE FOR KIMBERLY. PT INTUBATED AND SEDATED, ON VENT SETTINGS ORDERED BY MD. RT WILL COME TO ADJUST TUBE PLACEMENT. LEVO INFUSING FOR BP SUPPORT. PT SEDATED. SURGICAL DRESSING C/D/I NO S/S OF BLEEDING NOTED. NEW COLOSTOMY IN PLACE. MEJIAS CATH DRAINING MINIMAL KATHY URINE. ALL NEEDS ATTENDED TO, SAFETY MEASURES TAKEN, BED IN LOW POSITION, SIDE RAILS UP, CALL LIGHT WITHIN REACH.
[2020-02-10 19:46] LABS: EOSINOPHIL,URINE None Seen
[2020-02-10 20:12] LABS: CALCIUM, SERUM 7.8 mg/dL (8.5-10.1); CHLORIDE 94 mmol/L (98-107); CREATININE 3.2 mg/dL (0.6-1.3); GLUCOSE 267 mg/dL (74-106); POTASSIUM 3.1 mmol/L (3.5-5.1); SODIUM SERUM 149 mmol/L (136-145); UREA NITROGEN, BLOOD 43 mg/dL (7-18)
[2020-02-10 20:36] LABS: CARBON DIOXIDE 57 mmol/L (21-32)
--- NOTE | 2020-02-10 20:54 | NUR ---
ETT WITHDRAW 3CM. ETT IS NOW AT 20CM AT THE LIP. RN NOTIFIED.
[2020-02-10] MEDS ORDERED: SOD FERRIC GLUC 125 MG in IV NS 0.9% 100 ML IV SCH (21:00)
[2020-02-11] VITALS (82 sets, daily range): BP systolic 63–195; BP diastolic 22–150
[2020-02-11] MEDS: POTASSIUM CL. PREMIX PERIPHER. 50 ML IV SCH ×6 (00:11→13:34)
[2020-02-11] MEDS: METOCLOPRAMIDE HCL 10 MG/2 ML VIAL IV SCH ×5 (00:16→23:34)
[2020-02-11] MEDS: BLOOD SUGAR DIAGNOSTIC 1 EACH STRIP IN SCH ×5 (00:24→23:43)
[2020-02-11] MEDS: INSULIN REGULAR, HUMAN 100 UNIT/ML 3 ML VIAL SQ PRN ×5 (00:26→23:46)
[2020-02-11] MEDS ORDERED: NOREPINEPHRINE 4 MG/4 ML AMPUL IV ONE (01:26)
[2020-02-11] MEDS: MEROPENEM 500 MG in IV NS 0.9% 100 ML IV SCH ×2 (02:15→14:42)
[2020-02-11] MEDS: NOREPINEPHRINE 8 MG in IV NS 0.9% 242 ML IV PRN (02:24)
[2020-02-11] MEDS: KCL IV PRN ×6 (03:34→20:39)
[2020-02-11] MEDS: D5 IV PRN ×6 (03:34→20:39)
[2020-02-11] MEDS: [UNRECOGNIZED DRUG - OTHER] IV PRN ×6 (03:34→20:39)
[2020-02-11 04:36] LABS: BASOPHILS % (AUTO) 0.2 % (0.0-2.0); HEMATOCRIT 31 % (33-45); HEMOGLOBIN 9.1 g/dL (11.5-14.8); LYMPHOCYTES # (AUTO) 2.9 /CMM (0.8-4.8); LYMPHOCYTES % (AUTO) 13.4 % (20.0-44.0); MEAN CORPUSCULAR HGB CONC 30 g/dl (31.0-36.0); MEAN CORPUSCULAR VOLUME 71 fL (82-100); MONOCYTES # (AUTO) 1.4 /CMM (0.1-1.30); MONOCYTES % (AUTO) 6.2 % (2.0-12.0); NEUTROPHILS # (AUTO) 17.7 /CMM (1.8-8.9); NEUTROPHILS % (AUTO) 80.2 % (43.0-81.0); PLATELET COUNT (AUTO) 375 /CMM (150-450); RED BLOOD CELL COUNT(AUTO) 4.32 MIL/uL (4.0-5.2)
[2020-02-11] MEDS: PROPOFOL 100 ML IV PRN (04:56)
[2020-02-11 05:00] LABS: ALANINE AMINOTRANSFERASE 23 U/L (12-78); ALBUMIN 2.6 g/dL (3.4-5.0); ALKALINE PHOSPHATASE 72 U/L (46-116); ASPARTATE AMINOTRANSFERASE 42 U/L (15-37); BILIRUBIN,TOTAL 0.6 mg/dL (0.2-1.0); CALCIUM, SERUM 7.7 mg/dL (8.5-10.1); CHLORIDE 102 mmol/L (98-107); GLUCOSE 189 mg/dL (74-106); MAGNESIUM 2.4 mg/dL (1.8-2.4); PHOSPHORUS 2.6 mg/dL (2.5-4.9); POTASSIUM 3.4 mmol/L (3.5-5.1); SODIUM SERUM 150 mmol/L (136-145); TOTAL PROTEIN, SERUM 5.8 g/dL (6.4-8.2); UREA NITROGEN, BLOOD 42 mg/dL (7-18)
[2020-02-11] MEDS: METRONIDAZOLE 500MG/ NS 100ML 500 MG in PREMIX 1 EA IV SCH ×2 (05:12→12:01)
[2020-02-11 05:14] LABS: CARBON DIOXIDE 50 mmol/L (21-32)
[2020-02-11 05:21] LABS: CREATINE KINASE, TOTAL 1035 U/L (26-192)
--- NOTE | 2020-02-11 06:20 | NUR ---
GEOTHERMAL ELECTRICAL ENGINEER: REMAINED INTUBATED WT SETTINGS ORDERED. NO ACUTE DISTRESS, NO EVIDENCE OF DISCOMFORT. OPENS EYES TO TOUCH STIMULI. SEDATED ON DIPRIVAN AT 40MCG/KG/MIN. CONTINUE ON LEVOPHED AT 0.1MCG/KG/MIN FOR BP SUPPORT. SR-ST ON SPECIAL DELIVERY MAIL CARRIER. AFEBRILE. CONTINUE ON D5 1/2NS WT 40MEQ KCL AT 125ML/HR. ON ATB IV THERAPY WT NO ASE. NO S/S OF LUPE PICC LINE COMPLICATIONS. RT. NGT IN PLACE ON LOW INTERMITTENT SUCTION DRAINING GREENISH BROWN GASTRIC CONTENTS. SURGICAL SITE CLEAN, DRY AND INTACT. NO OUTPUT ON COLOSTOMY. BILAT. SOFT WRIST RESTRAINTS IN PLACE FOR EPISODES OF TRYING TO REACH TUBINGS. SKIN AND CIRCULATION WNL. F/C PATENT AND INTACT DRAINING KATHY COLORED URINE TO GRAVITY. HOB AT 35 DEGREES. BED IN LOWEST POSITION AND LOCKED, BED ALARM ACTIVATED, SIDE RAILS UPX2. WILL CONTINUE TO MONITOR.
--- NOTE | 2020-02-11 07:30 | NUR ---
RN OPENING NOTES RECEIVED PATIENT RESTING IN BED, SEDATED ON DIPRIVAN RUNNING AT 40MCG. PATIENT IS RESTING COMFORTABLY IN BED. EASILY AROUSABLE. PATIENT IS ON MECHANICAL VENTILATOR WITH SETTING ORDERED. TOLERATING WELL, SATURATING WELL AT 100%. NO SIGNS AND SYMPTOMS OF RESPIRATORY DISTRESS NOTED. NGT IS SET ON SUCTION, CURRENTLY AT 200ML WILL CONTINUE TO MONITOR CLOSELY. COLOSTOMY POUCH IS INTACT, NO DRAINAGE AT THE MOMENT. LUPE PICC LINE IS INTACT, PATENT, AND FLUSHED WELL. PATIENT SAFETY IS MAINTAINED, CALL LIGHT WITHIN REACH, WILL CONTINUE TO MONITOR CLOSELY.
--- NOTE | 2020-02-11 08:15 | NUR ---
RN NOTE SLOWLY TITRATING DIPRIVAN DOWN PER PELNICCI ORDER. STOP DRIPIVAN AND CHANGE VENT SETTING TO SIMV PER MD ORDER. SAFETY MAINTAINED, REMAINED IN STABLE CONDITION, SATURATING WELL, NO DISTRESS NOTED.
[2020-02-11] MEDS ORDERED: acetaZOLAMIDE SODIUM 500 MG/VIAL VIAL IV ONE (08:30)
[2020-02-11] MEDS: DOCUSATE SODIUM 100 MG CAPSULE PO SCH ×2 (08:57→17:00)
[2020-02-11] MEDS: HEPARIN SODIUM, PORCINE 5000 UNITS/1 ML VIAL SQ SCH ×2 (08:59→20:38)
[2020-02-11] MEDS: NITROGLYCERIN 30 GM TUBE TP SCH ×2 (09:00→20:45)
--- NOTE | 2020-02-11 09:13 | NUR ---
WOUND CARE CONSULT: PT PRESENTS WITH BLANCHABLE REDNESS TO SACRAL/BUTTOCKS AREA WITH SOME DISCOLORATION TO BUTTOCKS SKIN AND BRUISING TO LOWER BACK. RECOMMENDATIONS MADE FOR SKIN PROTECTION. DISCUSSED WITH NURSING STAFF. [facility] MD IN AGREEMENT WITH PLAN OF CARE. WILL SEE PRN. CURRENT PHYLLIS SCORE IS 15. Addendum: 02/11/20 at 0914 by MARY BLACKWELL WNDNU Amended: Links added.
[2020-02-11 10:36] LABS: ABG BASE EXCESS 15.1 mmol/L; ABG PCO2 39.5 mmHg (35.0-45.0); ABG PO2 110.3 mmHg (75.0-100.0); AaDO2 129.5 mmHg; COHb 0.4 % (0.5-1.5); MetHb 0.3 % (0.0-1.5); O2Hb 97.3 % (94.0-97.0); PEEP,BG 5 cm H2O; SITE, ABG Left Radial; VENT MODE, BG SIMV PS 15; VT, ABG 450 mL
--- NOTE | 2020-02-11 11:15 | NUR ---
RN NOTE PATIENT HAS BEEN SUCCESSFUL EXTUBATED. PATIENT TOLERATED WELL. COUGH PRESENT. CURRENTLY OFF PRESSORS TOLERATING WELL, OSCAR IS STABLE AT THE MOMENT. CURRENTLY PLACED ON 4L O2 VIA NC, SATURATING WELL AT 100%, NO RESPIRATORY DISTRESS NOTED. SAFETY MAINTAINED, CALL LIGHT WITHIN REACH, WILL CONTINUE TO MONITOR CLOSELY.
[2020-02-11] MEDS: ONDANSETRON HCL/PF 4 MG/2 ML VIAL IVP PRN (11:57)
--- NOTE | 2020-02-11 15:27 | NUR ---
RT 0930 PLACED PT ON SIMV 4 PS [address] REYES FOR WEANING TRIAL 1040 OBTAINED POST ABG VENT CHANGES ON SIMV, RESULTS RELAYED TO RN AND DR REYES 1105 SUCCESSFULLY EXTUBATED PT. RN BEDSIDE. PT HAS STRONG COUGH, NO STRIDOR HEARD. PLACED PT ON 4L NC. SP02 98%. NO SOB OR RESP DISTRESS NOTED POST EXTUBATION, WILL CONTINUE TO MONITOR T/O SHIFT.
[2020-02-11] MEDS: HYDROCODONE/APAP 5/325MG TABLET PO PRN (17:42)
--- NOTE | 2020-02-11 18:38 | NUR ---
RN CLOSING NOTES PATIENT REMAINED IN STABLE CONDITION DURING MY SHIFT. WAS EXTUBATED SUCCESSFULLY, REMAINED ON 4L O2 VIA NC, TOLERATING WELL THROUGHOUT SHIFT, SATURATING ABOVE 96%. NO SIGNS OF RESPIRATORY DISTRESS WAS NOTED. RESTRAINTS WERE DC, PATIENT IS COOPERATIVE WITH TREATMENT. REMAINED OFF PRESSORS SINCE 1100. BP WAS STABLE. COLOSTOMY OUTPUT WAS NOTED AND CHARTED. SPOKE TO PATIENTS FAMILY TO GIVE AN UPDATE. NO OTHER CHANGES DURING MY SHIFT, ALL PATIENT NEEDS WERE MET, SAFETY WAS MAINTAINED, WILL ENDORSE TO PM NURSE FOR CONTINUITY OF CARE.
--- NOTE | 2020-02-11 19:10 | NUR ---
IMMIGRATION LAWYER OPENING NOTES: Received pt resting in bed, A&Ox4. On 4L/min NC tolerating well. No SOB or respiratory distress noted. On tele monitor showing ST. R NGT patent and flushed. LUPE PICC and RFA #20 patent and flushing with D5 1/2NS running at 125ml/hr. Dressings c/d/i. Colostomy in place with no output currently noted. FC in place draining yellow urine via gravity. Safety measures in place. Will continue to monitor.
--- NOTE | 2020-02-11 20:47 | NUR ---
RN NOTE: Pt noted w/ 2 consecutive low BP. Levo started at 0.1mcg/kg/min. Will continue to monitor.
[2020-02-12] VITALS (39 sets, daily range): BP systolic 67–192; BP diastolic 33–126
--- NOTE | 2020-02-12 00:37 | NUR ---
EIGHT SECTION BLOWER NOTE: Pt noted to have leak in colostomy bag. Bag changed. Will continue to monitor.
[2020-02-12] MEDS: HYDROCODONE/APAP 5/325MG TABLET PO PRN ×3 (01:21→15:03)
[2020-02-12] MEDS: MEROPENEM 500 MG in IV NS 0.9% 100 ML IV SCH ×2 (03:00→15:07)
[2020-02-12 04:13] LABS: BASOPHILS % (AUTO) 0.1 % (0.0-2.0); EOSINOPHILS % (AUTO) 2.1 % (0.0-6.0); HEMATOCRIT 24 % (33-45); LYMPHOCYTES # (AUTO) 2.1 /CMM (0.8-4.8); LYMPHOCYTES % (AUTO) 16.2 % (20.0-44.0); MEAN CORPUSCULAR HGB CONC 29 g/dl (31.0-36.0); MEAN CORPUSCULAR VOLUME 73 fL (82-100); MONOCYTES # (AUTO) 0.9 /CMM (0.1-1.30); MONOCYTES % (AUTO) 6.8 % (2.0-12.0); NEUTROPHILS # (AUTO) 9.5 /CMM (1.8-8.9); NEUTROPHILS % (AUTO) 74.8 % (43.0-81.0); PLATELET COUNT (AUTO) 240 /CMM (150-450); RED BLOOD CELL COUNT(AUTO) 3.28 MIL/uL (4.0-5.2); WHITE BLOOD COUNT (AUTO) 12.8 K/uL (4.3-11.0)
[2020-02-12 04:21] LABS: ALANINE AMINOTRANSFERASE 20 U/L (12-78); ALBUMIN 2.1 g/dL (3.4-5.0); ALKALINE PHOSPHATASE 62 U/L (46-116); ASPARTATE AMINOTRANSFERASE 31 U/L (15-37); BILIRUBIN,TOTAL 0.4 mg/dL (0.2-1.0); CALCIUM, SERUM 7.6 mg/dL (8.5-10.1); CARBON DIOXIDE 33 mmol/L (21-32); CHLORIDE 112 mmol/L (98-107); CREATININE 1.6 mg/dL (0.6-1.3); GLUCOSE 159 mg/dL (74-106); MAGNESIUM 2.2 mg/dL (1.8-2.4); PHOSPHORUS 3.3 mg/dL (2.5-4.9); POTASSIUM 4.1 mmol/L (3.5-5.1); SODIUM SERUM 146 mmol/L (136-145); TOTAL PROTEIN, SERUM 5.1 g/dL (6.4-8.2); UREA NITROGEN, BLOOD 31 mg/dL (7-18)
[2020-02-12] MEDS: KCL IV PRN ×4 (05:29→15:07)
[2020-02-12] MEDS: [UNRECOGNIZED DRUG - OTHER] IV PRN ×4 (05:29→15:07)
[2020-02-12] MEDS: METOCLOPRAMIDE HCL 10 MG/2 ML VIAL IV SCH ×3 (05:29→17:54)
[2020-02-12] MEDS: D5 IV PRN ×4 (05:29→15:07)
[2020-02-12 05:35] LABS: LYMPHOCYTES % (MANUAL) 10 % (16-48); MONOCYTES % (MANUAL) 3 % (0-11.0); NEUTROPHILS % (MANUAL) 87 (42-76)
[2020-02-12] MEDS: INSULIN REGULAR, HUMAN 100 UNIT/ML 3 ML VIAL SQ PRN ×3 (05:43→17:59)
[2020-02-12] MEDS: BLOOD SUGAR DIAGNOSTIC 1 EACH STRIP IN SCH ×4 (05:43→22:06)
--- NOTE | 2020-02-12 05:48 | NUR ---
CAR SHIFTER NOTE: [id number]: Received call from Yoko in lab, pt's H/H is 03/26. 2039: Dr. Araya paged. [phone]: replied w/ "ok thanks".
--- NOTE | 2020-02-12 06:29 | NUR ---
DAIRY HAND CLOSING NOTES: Pt remains on 4L/min NC tolerating well. No SOB or respiratory distress noted during shift. Held pt's Levo at 0015. BP stable. All meds given as ordered. Safety measures in place. Will endorse to AM nurse for KIMBERLY.
[2020-02-12] MEDS: HEPARIN SODIUM, PORCINE 5000 UNITS/1 ML VIAL SQ SCH ×2 (08:32→22:06)
[2020-02-12] MEDS: NITROGLYCERIN 30 GM TUBE TP SCH ×2 (08:54→22:04)
[2020-02-12] MEDS: DOCUSATE SODIUM 100 MG CAPSULE PO SCH ×2 (08:54→17:00)
[2020-02-12 09:00] LABS: ABG BASE EXCESS 0.2 mmol/L; ABG OXYGEN SATURATION 99.2 % (92.0-98.5); ABG PCO2 45.8 mmHg (35.0-45.0); ABG PH 7.367 (7.350-7.450); ABG PO2 189.2 mmHg (75.0-100.0); AaDO2 43.3 mmHg; COHb 0.6 % (0.5-1.5); MetHb 0.4 % (0.0-1.5); O2Hb 98.2 % (94.0-97.0); SITE, ABG Right Femoral; VENT MODE, BG N/C 5LPM
[2020-02-12] MEDS ORDERED: DEXTROSE 50%-WATER 50 ML DISP.SYRIN IV PRN (11:00)
--- NOTE | 2020-02-12 18:35 | NUR ---
REPORT GIVEN TO FABIAN VENTURA FOR TRANSFER TO ROOM 325B. PT TRANSFERRED AT THIS TIME BY BED ACCOMPANIED BY 2 RN'S. ALL PT'S PERSONAL BELONGINGS TRANSFERRED WITH PATIENT INCLUDING PT'S CELL PHONE AND CINETECHNICIAN. PT MEDS FROM MED ROOM SENT WITH PATIENT. MEJIAS CATHETER AND OSTOMY EMPTIED PRIOR TO TRANSFER. PT RECEIVED 1 UNIT PRBCS THIS SHIFT PER MD ORDERS. NORCO GIVEN X2 PER MD ORDERS AND PT REQUEST. NG TUBE REMOVED THIS AM. PT CHECKED ON HOURLY AND PRN BY NURSING STAFF.
--- NOTE | 2020-02-12 18:50 | NUR ---
Received patient from ICU. Patient awake A/O x3, on O2 2l via NC. NOted with colostomy bag, F/C draining well, PIcc line on LUPE, fluid running as ordered. Patient placed on tele monitor , SR HR 104. Call light placed within reach. Will endorse to next shift for KIMBERLY
--- NOTE | 2020-02-12 19:25 | NUR ---
OIL FIELD ROUSTABOUT NOTES PATIENT RECEIVED IN BED RESTING COMFORTABLY, ALERT AND ORIENTED X 4. PATIENT ON NASAL CANNULA 2L, WITH NON-LABORED BREATHING. ON NETWORK TECHNICIAN, SINUS RHYTHM. PATIENT SKIN DRY AND WARM TO TOUCH. PICC LINE INTACT AND PATENT. MEJIAS CATHETER INTACT WITH URINE OUTPUT. COLOSTOMY BAD INTACT, NO DRAINAGE OR LEAKAGE. SAFETY PRECAUTIONS IMPLEMENTED WITH BED LOCKED, BED ALARM ON, BILATERAL SIDE RAILS UP, BED IN THE LOWEST POSITION AND CALL LIGHT WITHIN EASY REACH OF PATIENT. WILL CONTINUE TO MONITOR PATIENT.
--- NOTE | 2020-02-12 21:30 | NUR ---
ENERGY CONSERVATION TECHNICIAN NOTES INFORM DR MCDERMOTT PATIENT'S HgB 7.0 AND HCT 24. MADE AWARE OF HEPARIN SQ HEPARIN 5,000 UNITS, AND OKAY TO ADMINISTERED PER MD. NO NEW ORDERS AT THIS TIME. WILL CONTINUE TO MONITOR PATIENT.
--- NOTE | 2020-02-12 22:06 | NUR ---
TOURS HOSTESS NOTES PATIENT'S BLOOD SUGAR 118, PER SLIDING SCALE PROTOCOL NO INSULIN COVERAGE NEEDED, WILL CONTINUE TO MONITOR PATIENT.
[2020-02-13] MEDS: METOCLOPRAMIDE HCL 10 MG/2 ML VIAL IV SCH ×4 (00:04→17:48)
[2020-02-13 00:11] VITALS: BP 134/71
[2020-02-13] MEDS: MEROPENEM 500 MG in IV NS 0.9% 100 ML IV SCH ×2 (02:51→15:53)
[2020-02-13] MEDS: HYDROCODONE/APAP 5/325MG TABLET PO PRN ×2 (03:06→14:31)
--- NOTE | 2020-02-13 03:06 | NUR ---
FILTRATION SUPERVISOR NOTE PATIENT COMPLAINING OF DISCOMFORT AND ABDOMEN PAIN, STATING THE PAIN /10. ADMINISTERED PRN PO NORCO 5/325. VITAL SIGNS 149/79 HEART RATE 108 RESPIRATORY RATE 19 SPO2 100%. WILL CONTINUE TO MONITOR PATIENT.
[2020-02-13 03:47] VITALS: BP 149/79
[2020-02-13] MEDS: BLOOD SUGAR DIAGNOSTIC 1 EACH STRIP IN SCH ×4 (06:44→21:30)
[2020-02-13 06:51] LABS: BASOPHILS % (AUTO) 0.2 % (0.0-2.0); HEMATOCRIT 30 % (33-45); HEMOGLOBIN 8.9 g/dL (11.5-14.8); LYMPHOCYTES # (AUTO) 1.9 /CMM (0.8-4.8); LYMPHOCYTES % (AUTO) 15.8 % (20.0-44.0); MEAN CORPUSCULAR HGB CONC 30 g/dl (31.0-36.0); MEAN CORPUSCULAR VOLUME 74 fL (82-100); MONOCYTES # (AUTO) 0.8 /CMM (0.1-1.30); MONOCYTES % (AUTO) 6.8 % (2.0-12.0); NEUTROPHILS % (AUTO) 73.2 % (43.0-81.0); PLATELET COUNT (AUTO) 224 /CMM (150-450); WHITE BLOOD COUNT (AUTO) 12.2 K/uL (4.3-11.0)
--- NOTE | 2020-02-13 06:59 | NUR ---
INFECTION CONTROL SPECIALIST NOTES PATIENT IN BED SLEEPING, EASILY AWAKEN BY LIGHT TOUCH AND NAME. ON NASAL CANNULA, TOLERATING WELL, WITH NO SIGNS OF RESPIRATORY DISTRESS AT THIS TIME, WITH EVEN NON-LABORED BREATHING. PATIENT'S BLOOD SUGAR 107, NO INSULIN COVERAGE NEEDED. ON INSURANCE AGENCY SALES MANAGER, 90'S. MEJIAS CATHETER IN PLACE. COLOSTOMY INTACT AND IN PLACE WITH NO LEAKAGE. SKIN KEPT CLEAN AND DRY. DENIES PAIN AND DISCOMFORT AT THIS TIME, MET ALL OF PATIENT'S NEEDS. SAFETY PRECAUTIONS IN PLACE WITH BED IN THE LOWEST POSITION, HEAD OF THE BEAD IN SEMI-FOWLERS POSITION, BILATERAL SIDE RAILS UP, AND CALL LIGHT WITHIN EAST REACH OF THE PATIENT. WILL ENDORSE PLAN OF CARE TO UPCOMING DAYSHIFT NURSE.
[2020-02-13 07:21] LABS: ALBUMIN 2.2 g/dL (3.4-5.0); BILIRUBIN,TOTAL 0.6 mg/dL (0.2-1.0); CALCIUM, SERUM 8.2 mg/dL (8.5-10.1); CREATININE 0.7 mg/dL (0.6-1.3); MAGNESIUM 1.8 mg/dL (1.8-2.4); POTASSIUM 5.1 mmol/L (3.5-5.1)
[2020-02-13 08:00] VITALS: BP 156/82
--- NOTE | 2020-02-13 08:00 | NUR ---
RN OPENING NOTE PATIENT RECEIVED IN BED RESTING COMFORTABLY, ALERT AND ORIENTED X 4. PATIENT ON 2 L VIA NASAL CANNULA SATING 99%, PT HAS UNLABORED BREATHING. ON TRANSCRIPTION MANAGER, SR HR IN 90S.. PICC LINE IN LUPE AND 20 G ON RIGHT HAND S/L,PATENT, FLUSHES WELL. INTACT AND PATENT. MEJIAS CATHETER INTACT WITH URINE OUTPUT. COLOSTOMY BAG INTACT, WITH NO LEAKAGE. SAFETY MEASURES IMPLEMENTED WITH BED AT LOWEST POSITION AND LOCKED, BED ALARM ON, SIDE RAILS UPX2. WILL CONTINUE TO MONITOR .
[2020-02-13] MEDS: DOCUSATE SODIUM 100 MG CAPSULE PO SCH ×2 (09:54→17:48)
[2020-02-13] MEDS: NITROGLYCERIN 30 GM TUBE TP SCH ×2 (09:55→21:30)
[2020-02-13] MEDS: HEPARIN SODIUM, PORCINE 5000 UNITS/1 ML VIAL SQ SCH ×2 (09:59→21:29)
[2020-02-13 12:00] VITALS: BP_SYST 156; BP_SYST 181; BP_DIAS 89; BP_DIAS 91
--- NOTE | 2020-02-13 12:04 | NUR ---
MS/RN IV Fluids Dr Batista made aware that K+ 5.1 and current order for IVF has 40meq. Awaiting new orders.
[2020-02-13] MEDS ORDERED: NEUTRA PHOS 1 POWD.PACKET PO ONE (12:30)
[2020-02-13] MEDS: IV D5/0.45 NACL 1,000 ML IV SCH ×2 (12:55→22:16)
[2020-02-13] MEDS: SIMETHICONE 80 MG TAB.CHEW PO PRN (14:30)
[2020-02-13 16:00] VITALS: BP 146/82
--- NOTE | 2020-02-13 18:00 | NUR ---
RN CLOSING NOTE PT IS RESTING IN THE BED. THERE IS NO S/S OF DISTRESS. PT VSS, PT HAS UN LABORED BREATHING ON 2 L VIA NC SATING ABOVE 95%. NO ACUTE CHANGES DURING MY SHIF WILL ENDORSE TO INCOMING SHIFT FOR CONTINUITY OF CARE.
--- NOTE | 2020-02-13 19:38 | NUR ---
WOODEN FENCE ERECTOR NOTES PATIENT RECEIVED IN BED RESTING, EASILY AWAKEN BY NAME. ALERT AND ORIENTED X 4. ON MANAGER CALL SINUS RHYTHM. NO RESPIRATORY DISTRESS AT THIS TIME, WITH EVEN NON-LABORED BREATHING. PATIENT SKIN WARM AND DRY TO TOUCH. IV ACCESS INTACT AND PATENT, INFUSING IV D5 1/2 NS AT 125ml/hr. MEJIAS CATHETER IN PLACE WITH URINE OUTPUT. COLOSTOMY BAG INTACT AND IN PLACE WITH NO DRAINAGE OR LEAKAGE. PROVIDED COMFORT MEASURES TO PATIENT. SAFETY PRECAUTIONS IN PLACE WITH BED LOCKED, BED IN THE LOWEST POSITION, BILATERAL SIDE RAILS UP AND CALL LIGHT WITHIN EASY REACH OF PATIENT. WILL CONTINUE TO MONITOR PATIENT.
[2020-02-13 20:00] VITALS: BP 107/58
--- NOTE | 2020-02-13 21:30 | NUR ---
CHUCKER NOTES SPOKE WITH DR COTA, INFORMED PATIENT'S CONDITION. NO NEW ORDERS AT THIS TIME. WILL CONTINUE TO MONITOR PATIENT.
[2020-02-13] MEDS: INSULIN REGULAR, HUMAN 100 UNIT/ML 3 ML VIAL SQ PRN (22:21)
--- NOTE | 2020-02-13 22:21 | NUR ---
DIGITAL MEDIA DIRECTOR NOTES PATIENT'S BLOOD SUGAR 145, PER SLIDING SCALE PROTOCOL 2 UNITS OF INSULIN ADMINISTERED. PROVIDED APPLE JUICE TO PATIENT, WILL CONTINUE TO MONITOR PATIENT.
[2020-02-14 00:01] VITALS: BP 150/90
[2020-02-14] MEDS: METOCLOPRAMIDE HCL 10 MG/2 ML VIAL IV SCH ×4 (00:12→18:36)
[2020-02-14] MEDS: MEROPENEM 500 MG in IV NS 0.9% 100 ML IV SCH ×2 (03:37→15:17)
[2020-02-14] MEDS: HYDROCODONE/APAP 5/325MG TABLET PO PRN ×2 (03:51→21:53)
--- NOTE | 2020-02-14 03:51 | NUR ---
CASINO CASHIER NOTES PATIENT COMPLAINING OF DISCOMFORT AND ABDOMEN PAIN, STATING THE PAIN 6/10. ADMINISTERED PRN PO NORCO 5/325. VITAL SIGNS 163/96 PULSE 108 RESPIRATORY RATE 18 AND SPO2 94%. WILL CONTINUE TO MONITOR PATIENT.
[2020-02-14 04:00] VITALS: BP 163/96
[2020-02-14] MEDS: IV D5/0.45 NACL 1,000 ML IV SCH (04:30)
[2020-02-14] MEDS: BLOOD SUGAR DIAGNOSTIC 1 EACH STRIP IN SCH ×4 (06:38→21:37)
--- NOTE | 2020-02-14 06:45 | NUR ---
WHOLESALE DIAMOND BROKER NOTES PATIENT IN BED SLEEPING EASILY AWAKEN BY NAME. PATIENT ON ROOM AIR WITH NO SIGNS OF RESPIRATORY DISTRESS AT THIS TIME, AND NO SOB NOTED. PATIENT SKIN KEPT CLEAN AND DRY. REMOVED RIGHT FOREARM IV ACCESS, CATHETER TIP INTACT, AND APPLIED PRESSURE TO SITE. RIGHT UPPER PICC LINE INTACT AND PATENT. ON AUTOMATIC DOOR MECHANIC, NORMAL SINUS RHYTHM, 100. PATIENT COLOSTOMY BAG CHANGED, AND NO LEAKAGE OR DRAINAGE PRESENT. MEJIAS CATHETER IN PLACE. PATIENT'S BLOOD SUGAR 97, PER SLIDING SCALE PROTOCOL NO INSULIN COVERAGE NEEDED. MET ALL OF PATIENT'S NEEDS, DENIES PAIN OR DISCOMFORT AT THIS TIME. SAFETY PRECAUTIONS IN PLACE WITH BED LOCKED, BED IN THE LOWEST POSITION, BILATERAL SIDE RAILS UP AND CALL LIGHT WITHIN EASY REACH OF PATIENT. WILL ENDORSE PLAN OF CARE TO UPCOMING DAYSHIFT NURSE.
--- NOTE | 2020-02-14 07:10 | NUR ---
PRESCHOOL DISABILITY TEACHER OPENING NOTES RECEIVED PT IN BED RESTING, EASILY AWAKEN. AO X 4. BELGIAN SPEAKING. PT ON EXTERNAL TELEMETRY RESIDENT CARE TECHNICIAN READING SR IN THE 90S. NO SOB NOTED, NO S/S OF ANY ACUTE DISTRESS NOTED. BREATHING EVEN AND UNLABORED. RIGHT UPPER ARM PICC LINE INTACT AND PATENT, MEJIAS CATHETER IN PLACE DRAINING TO GRAVITY CLEAR YELLOW URINE OUTPUT. COLOSTOMY BAG INTACT AND IN PLACE WITH NO DRAINAGE OR LEAKAGE AT THIS TIME. ASPIRATION AND SAFETY PRECAUTIONS IN PLACE.BED IN LOWEST LOCKED POSITION, BED ALARM ON, SIDE RAILS UP, HOB ELEVATED TO FOWLERS POSITION, CALL LIGHT WITHIN REACH. WILL CONTINUE PLAN OF CARE AND CONTINUE TO MONITOR
[2020-02-14 08:00] VITALS: BP 146/94
[2020-02-14 08:55] LABS: BASOPHILS % (AUTO) 0.4 % (0.0-2.0); EOSINOPHILS % (AUTO) 3.3 % (0.0-6.0); HEMATOCRIT 30 % (33-45); HEMOGLOBIN 9.1 g/dL (11.5-14.8); LYMPHOCYTES # (AUTO) 2.2 /CMM (0.8-4.8); LYMPHOCYTES % (AUTO) 21.5 % (20.0-44.0); MEAN CORPUSCULAR HGB CONC 31 g/dl (31.0-36.0); MEAN CORPUSCULAR VOLUME 74 fL (82-100); MONOCYTES % (AUTO) 9.3 % (2.0-12.0); NEUTROPHILS # (AUTO) 6.7 /CMM (1.8-8.9); NEUTROPHILS % (AUTO) 65.5 % (43.0-81.0); PLATELET COUNT (AUTO) 241 /CMM (150-450); RED BLOOD CELL COUNT(AUTO) 4.06 MIL/uL (4.0-5.2); WHITE BLOOD COUNT (AUTO) 10.3 K/uL (4.3-11.0)
[2020-02-14] MEDS: DOCUSATE SODIUM 100 MG CAPSULE PO SCH ×2 (09:20→17:06)
[2020-02-14] MEDS: HEPARIN SODIUM, PORCINE 5000 UNITS/1 ML VIAL SQ SCH (09:22)
[2020-02-14] MEDS ORDERED: IV D5/0.45 NACL 1,000 ML IV PRN (09:30)
[2020-02-14] MEDS: NITROGLYCERIN 30 GM TUBE TP SCH ×2 (09:42→21:27)
[2020-02-14] MEDS ORDERED: ENOXAPARIN SODIUM 40 MG/0.4 ML DISP.SYRIN SQ SCH (10:03)
--- NOTE | 2020-02-14 11:33 | NUR ---
PER DOCTOR MD MARY, ADVANCE PATIENT'S DIET TO MECHANICAL SOFT DIET. ORDERS CARRIED OUT AND IMPLEMENTED. WILL CONTINUE TO MONITOR
[2020-02-14 13:00] LABS: CALCIUM, SERUM 8.2 mg/dL (8.5-10.1); CARBON DIOXIDE 25 mmol/L (21-32); CHLORIDE 103 mmol/L (98-107); CREATININE 0.5 mg/dL (0.6-1.3); GLUCOSE 111 mg/dL (74-106); MAGNESIUM 1.7 mg/dL (1.8-2.4); PHOSPHORUS 2.2 mg/dL (2.5-4.9); POTASSIUM 3.8 mmol/L (3.5-5.1); SODIUM SERUM 136 mmol/L (136-145); UREA NITROGEN, BLOOD 11 mg/dL (7-18)
[2020-02-14 16:00] VITALS: BP 170/93
[2020-02-14] MEDS ORDERED: K PHOS NEUTRAL 250 MG TABLET PO ONE (17:30)
--- NOTE | 2020-02-14 19:02 | NUR ---
MS RN CLOSING NOTES PT IN BED AWAKE AT THIS TIME. PT REMAINED STABLE THROUGHOUT SHIFT. PT KEPT CLEAN AND DRY. ALL CARE, NEEDS, TREATMENT AND MEDICATIONS ADMINISTERED ANTICIPATED PER ORDER. MEJIAS CATHETER CARE AND COLOSTOMY CARE PROVIDED. DIET ADVANCED TOLERATED PER ORDER. SAFETY PRECAUTIONS IN PLACE. BED IN LOWEST LOCKED POSITION, BED ALARM ON, SIDE RAILS UP, HOB ELEVATED TO FOWLERS POSITION, CALL LIGHT WITHIN REACH. WILL ENDORSE TO JOURNAL ENTRY AUDIT CLERK NURSE FOR KIMBERLY
--- NOTE | 2020-02-14 19:32 | NUR ---
MS RN NOTES PATIENT RECEIVED IN BED RESTING, EASILY AWAKEN BY NAME. ALERT AND ORIENTED X 4. NO RESPIRATORY DISTRESS AT THIS TIME, WITH EVEN NON-LABORED BREATHING AND NO SOB NOTED. PATIENT SKIN WARM AND DRY TO TOUCH. IV ACCESS INTACT AND PATENT. MEJIAS CATHETER IN PLACE WITH URINE OUTPUT. COLOSTOMY BAG INTACT AND IN PLACE WITH NO DRAINAGE OR LEAKAGE. PROVIDED COMFORT MEASURES TO PATIENT, DENIES PAIN AND DISCOMFORT AT THIS TIME. SAFETY PRECAUTIONS IN PLACE WITH BED LOCKED, BED IN THE LOWEST POSITION, BILATERAL SIDE RAILS UP, BED ALARM ON AND CALL LIGHT WITHIN EASY REACH OF PATIENT. WILL CONTINUE TO MONITOR PATIENT.
[2020-02-14] MEDS: ENOXAPARIN SODIUM 40 MG/0.4 ML DISP.SYRIN SQ SCH (21:27)
--- NOTE | 2020-02-14 21:53 | NUR ---
MS RN NOTES PATIENT COMPLAINING OF GENERALIZED DISCOMFORT AND ABDOMEN PAIN, STATING THE PAIN 7/10. ADMINISTERED PRN PO NORCO 5/325. VITAL SIGNS 154/87 HEART RATE 113 RESPIRATORY RATE 20 SPO2 95%. PROVIDED COMFORT MEASURES TO PATIENT AND WILL CONTINUE TO MONITOR PATIENT.
[2020-02-15] MEDS: METOCLOPRAMIDE HCL 10 MG/2 ML VIAL IV SCH ×4 (00:04→17:20)
[2020-02-15] MEDS: MEROPENEM 500 MG in IV NS 0.9% 100 ML IV SCH ×2 (03:14→14:32)
--- NOTE | 2020-02-15 06:43 | NUR ---
MS RN NOTES PATIENT IN BED SLEEPING EASILY AWAKEN BY NAME. PATIENT ON ROOM AIR WITH NO SIGNS OF RESPIRATORY DISTRESS AT THIS TIME, AND NO SOB NOTED. PATIENT SKIN KEPT CLEAN AND DRY. RIGHT UPPER PICC LINE INTACT AND PATENT. PATIENT COLOSTOMY BAG EMPTIED AND NO LEAKAGE OR DRAINAGE PRESENT. MEJIAS CATHETER IN PLACE. PATIENT'S BLOOD SUGAR 108, PER SLIDING SCALE PROTOCOL NO INSULIN COVERAGE NEEDED. MET ALL OF PATIENT'S NEEDS, DENIES PAIN OR DISCOMFORT AT THIS TIME. SAFETY PRECAUTIONS IN PLACE WITH BED LOCKED, BED IN THE LOWEST POSITION, BED ALARM ON, BILATERAL SIDE RAILS UP AND CALL LIGHT WITHIN EASY REACH OF PATIENT. WILL ENDORSE PLAN OF CARE TO UPCOMING DAYSHIFT NURSE.
[2020-02-15 07:07] LABS: BASOPHILS # (AUTO) 0.1 /CMM (0.0-0.2); BASOPHILS % (AUTO) 0.7 % (0.0-2.0); EOSINOPHILS % (AUTO) 2.3 % (0.0-6.0); HEMATOCRIT 31 % (33-45); HEMOGLOBIN 9.7 g/dL (11.5-14.8); LYMPHOCYTES # (AUTO) 2.1 /CMM (0.8-4.8); LYMPHOCYTES % (AUTO) 17.6 % (20.0-44.0); MEAN CORPUSCULAR HGB CONC 31 g/dl (31.0-36.0); MEAN CORPUSCULAR VOLUME 73 fL (82-100); MONOCYTES # (AUTO) 1.1 /CMM (0.1-1.30); MONOCYTES % (AUTO) 9.1 % (2.0-12.0); NEUTROPHILS # (AUTO) 8.3 /CMM (1.8-8.9); NEUTROPHILS % (AUTO) 70.3 % (43.0-81.0); PLATELET COUNT (AUTO) 272 /CMM (150-450); RED BLOOD CELL COUNT(AUTO) 4.29 MIL/uL (4.0-5.2); WHITE BLOOD COUNT (AUTO) 11.9 K/uL (4.3-11.0)
[2020-02-15 07:33] LABS: CARBON DIOXIDE 24 mmol/L (21-32); CHLORIDE 103 mmol/L (98-107); CREATININE 0.5 mg/dL (0.6-1.3); GLUCOSE 113 mg/dL (74-106); MAGNESIUM 1.6 mg/dL (1.8-2.4); PHOSPHORUS 2.3 mg/dL (2.5-4.9); POTASSIUM 3.6 mmol/L (3.5-5.1); SODIUM SERUM 136 mmol/L (136-145); UREA NITROGEN, BLOOD 9 mg/dL (7-18)
--- NOTE | 2020-02-15 07:38 | NUR ---
MS RN OPENING NOTES RECEIVED PATIENT IN BED, AWAKE, A/O X3. PATIENT IS ON ROOM AIR; BREATHING IS EVEN AND UNLABORED; NO SOB PRESENT AT THIS TIME. NO COMPLAINS OF PAIN AT THE MOMENT. LUPE PICC LINE PRESENT AND INTACT. COLOSTOMY BAG IN PLACE; NO LEAKAGE NOTED AT THE MOMENT. MEJIAS CATH IS SECURE; DRAINING YELLOW URINE. SAFETY PRECAUTIONS IN PLACE; BED IN LOW POSITION AND LOCKED, RAILS UP X2, CALL LIGHT WITHIN REACH. WILL CONTINUE TO MONITOR PATIENT.
[2020-02-15] MEDS: BLOOD SUGAR DIAGNOSTIC 1 EACH STRIP IN SCH ×4 (07:44→21:25)
[2020-02-15 08:00] VITALS: BP 147/77
[2020-02-15] MEDS: DOCUSATE SODIUM 100 MG CAPSULE PO SCH ×2 (08:29→16:06)
[2020-02-15] MEDS: NITROGLYCERIN 30 GM TUBE TP SCH ×2 (08:32→20:49)
[2020-02-15] MEDS: Magnesium 1GM/D5W 100ML PREMIX 100 ML IV SCH ×2 (09:15→10:31)
[2020-02-15] MEDS ORDERED: POTASSIUM PHOSPHATE MM 15 MMOL in IV NS 0.9% 250 ML IV SCH (09:30)
[2020-02-15 16:00] VITALS: BP 155/99
--- NOTE | 2020-02-15 17:13 | NUR ---
MS RN NOTES PATIENT REQUESTED TO WALK AROUND THE UNIT. PER MD MEJIAS WAS D/C. PATIENT WALKED AROUND THE UNIT FOR 5 MIN THEN BACK TO THE ROOM. AFTER MEJIAS WAS REMOVED PATIENT VOIDED USING BATHROOM.
--- NOTE | 2020-02-15 18:44 | NUR ---
MS RN CLOSING NOTES PATIENT REMAINS IN BED, AWAKE, A/O X3. PATIENT IS ON ROOM AIR; BREATHING IS EVEN AND UNLABORED; NO SOB PRESENT AT THIS TIME. NO COMPLAINS OF PAIN DURING THE DAY. LUPE PICC LINE PRESENT AND INTACT INFUSING ANTIBIOTICS AT THIS TIME. COLOSTOMY BAG IN PLACE AND CHANGED TODAY; NO LEAKAGE NOTED AT THE MOMENT. MEJIAS CATH D/C PER MD WITH TODAY'S OUTPUT OF 260 MLS. PATIENT VOIDED AFTER CATH WAS REMOVED. ALL NEEDS ATTENDED TO THROUGHOUT THE DAY. SAFETY PRECAUTIONS IN PLACE; BED IN LOW POSITION AND LOCKED, RAILS UP X2, CALL LIGHT WITHIN REACH. WILL ENDORSE TO STORYBOARD ARTIST NURSE.
[2020-02-15 20:00] VITALS: BP 161/92
--- NOTE | 2020-02-15 20:00 | NUR ---
MS/RN OPENING NOTES RECEIVED PATIENT IN BED, AWAKE, ALERT, SPEAKS GERMAN, PATIENT ABLE TO VERBALIZE NEEDS AND ABLE TO HAVE DINNER , PATIENT COLOSTOMY BAG WAS CHANGES EARLY SHIFT, BED LOCKED, CALL LIGHTS WITHIN REACH, WILL MONITOR, MONITOIRNG FOR ANY S/S OF BRUISING AND ON MECHANICAL SOFT DIET, , S/P MEJIAS WITH RUE PICC LIBE, WILL MONITOR.
[2020-02-15] MEDS: ENOXAPARIN SODIUM 40 MG/0.4 ML DISP.SYRIN SQ SCH (20:52)
--- NOTE | 2020-02-15 21:32 | NUR ---
BLOOD SUGAR CHECK 96. OFFERED SNACKS.
[2020-02-16] MEDS: METOCLOPRAMIDE HCL 10 MG/2 ML VIAL IV SCH ×3 (00:03→11:51)
[2020-02-16] MEDS: MEROPENEM 500 MG in IV NS 0.9% 100 ML IV SCH (02:08)
[2020-02-16] MEDS: BLOOD SUGAR DIAGNOSTIC 1 EACH STRIP IN SCH ×2 (05:46→11:39)
--- NOTE | 2020-02-16 07:06 | NUR ---
306-1 MS/RN NOTES PATIENT ALERT, X3, ABLE TO SLEEP FEW HOURS, MONITORED AND ATTENDED TO ALL NEEDS, ON ROOM AIR, ASSISTED TO BATHROOM, KEPT SKIN INTACT, COLOSTOMY DRAINING BLACK COLORED DRAIN, REDNESS OBSERVED AROUND THE SITE. WILL ENDORSE TO AM RN FOR KIMBERLY.
--- NOTE | 2020-02-16 07:29 | NUR ---
MS RN OPENING NOTES RECEIVED PATIENT IN BED, AWAKE, A/O X3. PATIENT IS ON ROOM AIR; BREATHING IS EVEN AND UNLABORED; NO SOB PRESENT AT THIS TIME. NO COMPLAINS OF PAIN AT THE MOMENT. PATIENT SAID SHE WANTS TO REST BECAUSE SHE WAS NOT ABLE DURING THE NIGHT WITH NEW ADMIT TO HER ROOM. LUPE PICC LINE PRESENT AND INTACT. COLOSTOMY BAG IN PLACE; NO LEAKAGE NOTED AT THE MOMENT; SOME SKIN IRRITATION BECAUSE OF THE BAG; PROTECTIVE CREAM APPLIED. SAFETY PRECAUTIONS IN PLACE; BED IN LOW POSITION AND LOCKED, RAILS UP X2, CALL LIGHT WITHIN REACH. WILL CONTINUE TO MONITOR PATIENT.
[2020-02-16 08:00] VITALS: BP 155/75
[2020-02-16] MEDS: DOCUSATE SODIUM 100 MG CAPSULE PO SCH (08:03)
[2020-02-16 09:09] VITALS: BP 155/75
[2020-02-16] MEDS: NITROGLYCERIN 30 GM TUBE TP SCH (09:09)
--- NOTE | 2020-02-16 15:24 | NUR ---
MS LIVESTOCK FARMER NOTES PATIENT DISCHARGED IN MEDICALLY STABLE CONDITION. PATIENT'S VITAL SIGNS WNL. ALL DOCUMENTATIONS PREPARED AND SIGNED BY THE PATIENT. MEDICATION PRESCRIPTION WENT OVER WITH; PATIENT VERBALIZED UNDERSTANDING ALTHOUGH THERE IS SOME LANGUAGE BARRIER PRESENT. VALUABLES ACCOUNTED FOR AND FORM SIGNED BY THE PATIENT. TEACHING REGARDING HOW TO EMPTY COLOSTOMY BAG PROVIDED WELL; PATIENT WASN'T VERY COMFORTABLE DOING IT HERSELF SAYING THAT SHE WILL HAVE HOME-HEALTH HOME AVAILABLE TO DO IT FOR HER. PHOTOS TAKEN AND FILED; PICC LINE REMOVED; WRIST BAND REMOVED WELL. PATIENT LEFT THE FLOOR ACCOMPANIED BY RN AND AUTOMOBILE TRAVEL CLUB COUNSELOR. OUTSIDE PATIENT WAS MET BY HER FAMILY MEMBER WHO WAS INSTRUCTED TO FOLLOW UP WITH DR DA SILVA IN ONE TO TWO WEEKS. PATIENT ALSO PROVIDED WITH 2 ADDITIONAL COLOSTOMY BAGS IN CASE SHE MIGHT NEED TO USE IT AT HOME. PATIENT LEFT [facility] VIA PRIVATE CAR.
[2020-02-21] MEDS ORDERED: CIPROFLOXACIN IV RTU 400 MG in PREMIX 1 EA IV SCH (13:00)
== END 2020-02-16 14:00 | disposition home health service (06) | DRG 329 ==
LOC: ER 22:03 → MED 02-05 02:01 → ICU 02-10 10:54 → MED 02-12 18:47 → TELE 02-12 22:06 → MED 02-14 10:28
PROVIDERS: ADMIT Nurse Practitioner Acute Care
PROC: 0DBE8ZX Excision of Large Intestine, Via Natural or Artificial Opening Endoscopic, Diagnostic (ICD-10-PCS; 2020-02-06)
PROC: 0DTN0ZZ Resection of Sigmoid Colon, Open Approach (ICD-10-PCS; principal; 2020-02-10)
PROC: 0D1E0Z4 Bypass Large Intestine to Cutaneous, Open Approach (ICD-10-PCS; 2020-02-10)
PROC: 02HV33Z Insertion of Infusion Device into Superior Vena Cava, Percutaneous Approach (ICD-10-PCS; 2020-02-10)
PROC: B548ZZA Ultrasonography of Superior Vena Cava, Guidance (ICD-10-PCS; 2020-02-10)
PROC: 30233P1 Transfusion of Nonautologous Frozen Red Cells into Peripheral Vein, Percutaneous Approach (ICD-10-PCS; 2020-02-12)
DX: C18.7 Malignant neoplasm of sigmoid colon (principal); N17.0 Acute kidney failure with tubular necrosis; J96.01 Acute respiratory failure with hypoxia; J96.02 Acute respiratory failure with hypercapnia; E27.40 Unspecified adrenocortical insufficiency; E87.1 Hypo-osmolality and hyponatremia; E87.4 Mixed disorder of acid-base balance; E87.0 Hyperosmolality and hypernatremia; E87.6 Hypokalemia; E83.41 Hypermagnesemia; D50.9 Iron deficiency anemia, unspecified; E78.5 Hyperlipidemia, unspecified; I70.90 Unspecified atherosclerosis; K59.00 Constipation, unspecified; E11.9 Type 2 diabetes mellitus without complications; I10 Essential (primary) hypertension; E86.9 Volume depletion, unspecified; R94.31 Abnormal electrocardiogram [ECG] [EKG]; R81 Glycosuria; D56.1 Beta thalassemia; D72.829 Elevated white blood cell count, unspecified
CPT/HCPCS: 31720; 36415; 36569; 36600; 71045-TC; 71260-TC; 74018; 80048-TC; 80053-TC; 80061-TC; 80076-TC; 81000-TC; 82248-TC; 82378; 82533; 82550-TC; 82553; 82570-TC; 82728-TC; 82803-TC; 82962-TC; 83021; 83540-TC; 83605-TC; 83690-TC; 83735-TC; 84100-TC; 84132-TC; 84155-TC; 84300-TC; 84439-TC; 84443-TC; 84484-TC; 85025-TC; 85660; 85730-TC; 86850-TC; 86921-TC; 87040-TC; 87081-TC; 87086-TC; 88305-TC; 88309-TC; 88342; 93307-TC; 94002-TC; 94003-TC; 94760-TC; 94799-TC; 97116-TC; 97530-TC; A4216; A6209; C1751; G0378; J0330; J0360; J0744; J1100; J1120; J1644; J1650; J1815; J1956; J2060; J2185; J2250; J2270; J2370; J2405; J2704; J2765; J2916; J3475; J3480; J3490; J7030; J7042; J7050; J7070; P9016-BL; Q9967

== ENCOUNTER 2023-06-25 17:16 | Emergency (ER) | payer MEDICARE, OTHER ==
[~2023-06-25] VITALS: Ht 162.6 cm; Wt 73.0 kg
[~2023-06-25 17:16] MED LIST: AMLO-212 PO; DOCU-270 PO; FERR325T30 PO; LISI20TA30 PO; NEBI10TA2 PO; PROP20TA7 PO; ZOLP5TAB8 PO
[2023-06-25] MEDS ORDERED: MORPHINE SULFATE INJ 2 MG/ML DISP.SYRIN IV ONE (18:00)
[2023-06-25] MEDS ORDERED: KETOROLAC TROMETHAMINE INJ 30 MG/ML VIAL IV ONE (18:00)
[2023-06-25] MEDS ORDERED: KETOROLAC TROMETHAMINE 15 MG/ML VIAL ONE (18:24)
[2023-06-25] MEDS ORDERED: MORPHINE SULFATE INJ 4 MG/ML DISP.SYRIN ONE (18:25)
[2023-06-25 18:43] LABS: BASOPHILS # (AUTO) 0.1 K/uL (0.0-0.2); BASOPHILS % (AUTO) 0.5 % (0.0-2.0); EOSINOPHILS # (AUTO) 0.1 K/uL (0.0-0.7); EOSINOPHILS % (AUTO) 1.1 % (0.0-6.0); HEMATOCRIT 43 % (33-45); HEMOGLOBIN 14.3 g/dL (11.5-14.8); LYMPHOCYTES # (AUTO) 3.1 K/uL (0.8-4.8); LYMPHOCYTES % (AUTO) 27.8 % (20.0-44.0); MEAN CORPUSCULAR HEMOGLOBIN 29 PG (26.0-33.0); MEAN CORPUSCULAR HGB CONC 33 g/dl (31.0-36.0); MEAN CORPUSCULAR VOLUME 87 fL (82-100); MONOCYTES # (AUTO) 0.8 K/uL (0.1-1.30); NEUTROPHILS % (AUTO) 63.6 % (43.0-81.0); PLATELET COUNT (AUTO) 258 K/uL (150-450); RED BLOOD CELL COUNT(AUTO) 4.96 MIL/uL (4.0-5.2); RED CELL DISTRIBUTION WIDTH 13.5 % (11.5-15.0); WHITE BLOOD COUNT (AUTO) 11.1 K/uL (4.3-11.0)
[2023-06-25 18:57] LABS: ALBUMIN 3.6 g/dL (3.4-5.0); BILIRUBIN,DIRECT 0.1 mg/dL (0.0-0.2); BILIRUBIN,TOTAL 0.4 mg/dL (0.2-1.0); CALCIUM, SERUM 9.2 mg/dL (8.5-10.1); CREATININE 0.7 mg/dL (0.6-1.3); POTASSIUM 3.5 mmol/L (3.5-5.1); TOTAL PROTEIN, SERUM 7.6 g/dL (6.4-8.2)
[2023-06-25] MEDS ORDERED: IOHEXOL-300 100 ML VIAL IV ONE (19:07)
[2023-06-25] MEDS ORDERED: CT SWABBABLE VALVE TRANS SET 1 EA INFUS.SET MC ONE (19:07)
[2023-06-25] MEDS ORDERED: IV NS 0.9% 250 ML IV ONE (19:07)
[2023-06-25] MEDS ORDERED: IBUP-1953 PO (20:41)
[2023-06-25] MEDS ORDERED: METH4TAB3 PO (20:41)
[2023-06-25 21:01] VITALS: BP 149/83; TEMP 98.9; O2SAT 100
== END 2023-06-25 21:01 | disposition home or self-care (01) ==
LOC: ER 17:22
DX: M54.41 Lumbago with sciatica, right side (principal); R10.9 Unspecified abdominal pain; Z85.038 Personal history of other malignant neoplasm of large intestine; I10 Essential (primary) hypertension; Z79.899 Other long term (current) drug therapy; Z90.49 Acquired absence of other specified parts of digestive tract; Z88.1 Allergy status to other antibiotic agents
CPT/HCPCS: 99285; 74177; 96374; 96375; 85025; 80048; 83690; 80076; 36415; J2270; J7050; Q9967; J1885